=== PATIENT | female | born 1935 | race Caucasian/White ===

== ENCOUNTER 2018-01-24 18:05 | Inpatient (IN) | payer MEDICARE, MEDICAID ==
[~2018-01-24] VITALS: Ht 172.7 cm; Wt 84.5 kg
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
[2018-01-24 19:19] LABS: BASO # 0.1 x10^3/uL (0.0-0.2); BASO % 1 % (0-3); EOS # 0.4 x10^3/uL (0.0-0.7); EOS % 5 % (0-3); HEMATOCRIT 45.8 % (36.0-47.0); HEMOGLOBIN 15.1 g/dL (12.0-15.5); LYMPH # 1.4 x10^3/uL (1.0-4.8); LYMPH % 17 % (24-48); MEAN CORPUSCULAR HEMOGLOBIN 27 pg (25-35); MEAN CORPUSCULAR HGB CONC 33 g/dL (31-37); MEAN CORPUSCULAR VOLUME 82 fL (79-100); MONO # 0.7 x10^3/uL (0.0-1.1); MONO % 8 % (0-9); NEUT # 5.7 x10^3uL (1.8-7.7); NEUT % 69 % (31-73); PLATELET COUNT 277 x10^3/uL (140-400); RED BLOOD COUNT 5.61 x10^6/uL (3.50-5.40); RED CELL DISTRIBUTION WIDTH 14.9 % (11.5-14.5); WHITE BLOOD COUNT 8.3 x10^3/uL (4.0-11.0)
[2018-01-24 19:23] LABS: AMPHETAMINE/METHAMPHETAMINE NEG (NEG); BARBITURATES NEG (NEG); BENZODIAZEPINES NEG (NEG); CANNABINOIDS NEG (NEG); COCAINE NEG (NEG); METHADONE NEG (NEG); OPIATES NEG (NEG); PHENCYCLIDINE NEG (NEG)
--- NOTE | 2018-01-24 19:25 | RAD ---
EXAM: Chest, single view. HISTORY: Altered mental status. COMPARISON: None. FINDINGS: A frontal view of the chest is obtained. There is mild pulmonary congestion. There is elevation of the right hemidiaphragm. The heart is normal in size. No pleural effusion or pneumothorax is seen. There is a cardiac pacemaker with leads in expected position. IMPRESSION: 1. Suspected mild pulmonary congestion. 2. Mild elevation of the right hemidiaphragm. Electronically signed by: Jessika Hayes MD (01/24/2018 7:22 PM) [facility]
--- NOTE | 2018-01-24 19:27 | RAD ---
EXAM: Head CT without contrast. HISTORY: Altered mental status. TECHNIQUE: Computed tomographic images of the head were obtained without contrast. *One or more of the following individualized dose reduction techniques were utilized for this examination: 1. Automated exposure control. 2. Adjustment of the mA and/or kV according to patient size. 3. Use of iterative reconstruction technique. COMPARISON: None. FINDINGS: There is no acute or subacute extra-axial or intraparenchymal hemorrhage. There is no mass effect or midline shift. There is no hydrocephalus. There are extensive areas of decreased attenuation within the cerebral white matter, nonspecific and likely related to chronic small vessel disease. There is cerebral atrophy. The visualized portions of the orbits, paranasal sinuses and mastoid air cells are unremarkable. No suspicious calvarial lesion is seen. IMPRESSION: 1. Extensive areas of hypodensity within the cerebral white matter, likely due to chronic small vessel disease. 2. Cerebral atrophy. 3. Note is made that MRI is more sensitive for acute infarction. Electronically signed by: Jessika Hayes MD (01/24/2018 7:24 PM) [facility]
[2018-01-24 19:30] LABS: COLOR,URINE YELLOW
[2018-01-24 19:31] LABS: CALCIUM 8.7 mg/dL (8.5-10.1); CREATININE 0.5 mg/dL (0.6-1.0); GFR 118.7; MAGNESIUM 1.9 mg/dL (1.8-2.4); POTASSIUM 3.7 mmol/L (3.5-5.1)
[2018-01-24 19:31] LABS: BILIRUBIN,URINE NEG (NEG); CLARITY,URINE CLOUDY; GLUCOSE,URINE NEG (NEG); NITRITE,URINE POS (NEG); UROBILINOGEN,URINE 0.2 mg/dL (0.2 mg/dL)
[2018-01-24 19:32] LABS: BACTERIA,URINE MOD /HPF (0-FEW); RBC,URINE OCC /HPF (0-2); SQUAMOUS EPITHELIAL CELL,UR FEW /LPF; WBC,URINE >40 /HPF (0-4)
[2018-01-24] MEDS ORDERED: cefTRIAXone IM 1 GM VIAL IM ONE (20:00)
[2018-01-24] MEDS ORDERED: ASPI-630 PO (20:05)
[2018-01-24] MEDS ORDERED: MELA3TAB2 PO (20:05)
[2018-01-24] MEDS ORDERED: LIPA1CAP4 PO (20:05)
[2018-01-24] MEDS ORDERED: HYDR-2758 PO (20:05)
[2018-01-24] MEDS ORDERED: GABA-586 PO (20:05)
[2018-01-24] MEDS ORDERED: ACET650S11 RC (20:05)
[2018-01-24] MEDS ORDERED: ESCITALOPRAM OX20 MG PO (20:05)
[2018-01-24] MEDS ORDERED: DOCU100C28 PO (20:05)
[2018-01-24] MEDS ORDERED: ACET325T9 PO (20:05)
[2018-01-24] MEDS ORDERED: [UNRECOGNIZED DRUG - CODE] AU (20:05)
[2018-01-24] MEDS ORDERED: NYST60PO TP (20:05)
[2018-01-24] MEDS ORDERED: OMEP20TA8 PO (20:05)
[2018-01-24] MEDS ORDERED: ATRO2DRO3 SL (20:05)
[2018-01-24] MEDS ORDERED: PROM25TA10 PO (20:05)
[2018-01-24] MEDS ORDERED: OLAN5TAB9 PO ×2 (20:05)
[2018-01-24] MEDS ORDERED: BISA10SU55 RC (20:05)
[2018-01-24] MEDS ORDERED: MORP20SY SL (20:05)
[2018-01-24 20:28] LABS: SEDIMENTATION RATE 8 (0-25)
[2018-01-24 21:37] VITALS: BP 142/61
[2018-01-24] MEDS ORDERED: ACETAMINOPHEN 325 MG TABLET PO PRN (22:00)
[2018-01-24] MEDS ORDERED: HYDROcodone/APAP 5/325MG 1 TAB TABLET PO PRN (22:00)
[2018-01-24] MEDS ORDERED: MAG HYDROX/AL HYDROX/SIMETH 30 ML ORAL.SUSP PO PRN (22:00)
[2018-01-24] MEDS ORDERED: PROMETHAZINE 25 MG TABLET. PO PRN (22:00)
[2018-01-24] MEDS ORDERED: NYSTATIN TOPICAL POWDER 15GM BOTTLE. TP PRN (22:00)
[2018-01-24] MEDS ORDERED: BISACODYL 10 MG SUPP.RECT RC PRN (22:00)
[2018-01-24] MEDS ORDERED: MAGNESIUM HYDROXIDE 2,400 MG/30 ML ORAL.SUSP. PO PRN (22:00)
[2018-01-24] MEDS: MELATONIN 3 MG TABLET PO SCH (22:19)
[2018-01-24] MEDS: OLANZapine 5 MG TABLET PO SCH (22:19)
[2018-01-24] MEDS ORDERED: CARBAMIDE PEROXIDE 6.5% OTIC SOLUTION 15ML BOTTLE. AU PRN (22:45)
--- NOTE | 2018-01-25 00:22 | EKG ---
[address] [address] Test Date: 2018-01-24 Test Time: 18:48:17 Pat Name: CANDELARIA MAGAÑA Department: Room: [address] [place] [address] Gender: F Civil Rights Attorney: : 1935 Requested By: JANETH JIMENEZ Order Number: [id number] Reading MD: Measurements Intervals Savage Rate: 61 P: MI: QRS: -22 QRSD: 100 T: 7 QT: 438 QTc: 442 Interpretive Statements IRREGULAR RHYTHM, NO P-WAVE FOUND LEFTWARD AXIS R-S TRANSITION ZONE IN V LEADS DISPLACED TO THE LEFT QRS(T) CONTOUR ABNORMALITY CONSIDER ANTEROSEPTAL MYOCARDIAL DAMAGE POSSIBLY ABNORMAL ECG RI6.01 No previous ECG available for comparison
[2018-01-25 05:40] VITALS: BP 117/59
[2018-01-25] MEDS: PANTOPRAZOLE 40 MG TABLET. PO SCH (08:57)
[2018-01-25] MEDS: OLANZapine 7.5 MG TABLET PO SCH (08:57)
[2018-01-25] MEDS: LIPASE/PROTEAS/AMYLAS 10/34/55 CAPSULE.DR. PO SCH ×4 (08:57→20:03)
[2018-01-25] MEDS: DOCUSATE SODIUM 100 MG CAPSULE PO SCH ×2 (08:57→20:02)
[2018-01-25] MEDS: GABAPENTIN 300 MG CAPSULE. PO SCH ×2 (08:57→20:02)
[2018-01-25] MEDS: ASPIRIN 81 MG TAB.CHEW PO SCH (08:58)
[2018-01-25] MEDS ORDERED: CITALOPRAM 20 MG TABLET. PO SCH (09:00)
[2018-01-25 09:54] LABS: BASO # 0.1 x10^3/uL (0.0-0.2); BASO % 1 % (0-3); EOS # 0.3 x10^3/uL (0.0-0.7); EOS % 3 % (0-3); HEMATOCRIT 44.6 % (36.0-47.0); HEMOGLOBIN 14.6 g/dL (12.0-15.5); LYMPH # 1.1 x10^3/uL (1.0-4.8); LYMPH % 13 % (24-48); MEAN CORPUSCULAR HEMOGLOBIN 27 pg (25-35); MEAN CORPUSCULAR HGB CONC 33 g/dL (31-37); MEAN CORPUSCULAR VOLUME 82 fL (79-100); MONO # 0.6 x10^3/uL (0.0-1.1); MONO % 7 % (0-9); NEUT # 6.5 x10^3uL (1.8-7.7); NEUT % 75 % (31-73); PLATELET COUNT 276 x10^3/uL (140-400); RED BLOOD COUNT 5.45 x10^6/uL (3.50-5.40); RED CELL DISTRIBUTION WIDTH 14.6 % (11.5-14.5); WHITE BLOOD COUNT 8.6 x10^3/uL (4.0-11.0)
[2018-01-25 10:08] LABS: CALCIUM 8.9 mg/dL (8.5-10.1); CREATININE 0.5 mg/dL (0.6-1.0); GFR 118.7; POTASSIUM 3.6 mmol/L (3.5-5.1)
[2018-01-25 11:46] LABS: THYROID STIM HORMONE (TSH) 0.629 uIU/mL (0.358-3.740)
[2018-01-25] MEDS ORDERED: LIPASE/PROTEAS/AMYLAS 10/34/55 CAPSULE.DR. PO ONE (12:30)
[2018-01-25 16:23] VITALS: BP 115/52
[2018-01-25] MEDS: MELATONIN 3 MG TABLET PO SCH (20:02)
[2018-01-25] MEDS: OLANZapine 5 MG TABLET PO SCH (20:02)
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
[2018-01-25 23:08] LABS: HEMOGLOBIN A1C 6.6 % (4.8-5.6)
[2018-01-26 00:09] LABS: THYROXINE 8.2 ug/dL (4.5-12.0)
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
[2018-01-26 06:13] VITALS: BP 149/70
[2018-01-26] MEDS: PANTOPRAZOLE 40 MG TABLET. PO SCH (07:39)
[2018-01-26] MEDS: ASPIRIN 81 MG TAB.CHEW PO SCH (11:08)
[2018-01-26] MEDS: LIPASE/PROTEAS/AMYLAS 10/34/55 CAPSULE.DR. PO SCH ×4 (11:08→19:34)
[2018-01-26] MEDS: GABAPENTIN 300 MG CAPSULE. PO SCH ×2 (11:08→19:33)
[2018-01-26] MEDS: OLANZapine 7.5 MG TABLET PO SCH (11:08)
[2018-01-26] MEDS: DOCUSATE SODIUM 100 MG CAPSULE PO SCH ×2 (11:08→19:33)
[2018-01-26] MEDS: SERTRALINE 50 MG TABLET. PO SCH (11:09)
[2018-01-26 16:39] VITALS: BP 123/51
[2018-01-26] MEDS: MELATONIN 3 MG TABLET PO SCH (19:33)
[2018-01-26] MEDS: OLANZapine 5 MG TABLET PO SCH (19:34)
--- NOTE | 2018-01-26 22:49 | PDOC ---
Exam Note: Cheikh Note: Late entry for date of service January 25, 2018. Please also refer to the separate dictated note~for this date of service dictated separately.~Patient seen individually. Discussed the patient with Nursing staff reviewed the chart.~ Reviewed interim history and current functioning. Reviewed vital signs,~Labs/ Radiology~and current medications noted below. Continue current treatment with the changes noted in the dictated addendum note Assessment: Vital Signs: VS - Last 72 Hours, by Label Date Time Temp Pulse Resp B/P (MAP) Pulse Ox O2 Delivery O2 Flow Rate FiO2 01/26/18 16:39 98.6 66 16 123/51 (75) 91 01/26/18 06:13 97.4 63 14 149/70 (96) 97 01/25/18 16:23 97.9 66 16 115/52 (73) 93 01/25/18 05:40 97.6 59 18 117/59 (78) 97 01/24/18 21:37 97.4 60 20 142/61 (88) 98 01/24/18 20:48 60 16 102/66 (78) 99 Room Air 01/24/18 18:18 98.0 63 16 99 Room Air Vital Signs Date Time Temp Pulse Resp B/P (MAP) Pulse Ox O2 Delivery O2 Flow Rate FiO2 01/26/18 16:39 98.6 66 16 123/51 (75) 91 01/24/18 20:48 Room Air I&O Intake and Output 01/26/18 07:00 Intake Total 660 ml Balance 660 ml Intake Oral 660 ml # Bowel Movements 1 Current Medications: Meds: Current Medications Ceftriaxone Sodium (Rocephin Im) 1 gm 1X ONCE IM Last administered on at 20:16; Start 01/24/18 at 20:00; Stop 01/24/18 at 20:01; Status DC Citalopram Hydrobromide (CeleXA) 40 mg DAILY PO Last administered on 01/25/18at 08:58; Start 01/25/18 at 09:00; Stop 01/25/18 at 20:08; Status DC Melatonin 3 mg HS PO Last administered on 01/26/18at 19:33; Start 01/24/18 at 22 :00 Olanzapine (ZyPREXA) 5 mg HS PO Last administered on 01/26/18at 19:34; Start at 22:00 Olanzapine (ZyPREXA) 7.5 mg DAILY PO Last administered on 01/26/18at 11:08; Start 01/25/18 at 09:00 Al Hydroxide/Mg Hydroxide (Mylanta Plus Xs) 15 ml PRN AFTMEALHC PRN PO DYSPEPSIA; Start 01/24/18 at 22:00 Magnesium Hydroxide (Milk Of Magnesia) 2,400 mg PRN QHS PRN PO CONSTIPATION; Start 01/24/18 at 22:00 Acetaminophen (Tylenol) 650 mg PRN Q6HRS PRN PO PAIN / TEMP; Start 01/24/18 at 22:00 Gabapentin (Neurontin) 300 mg BID PO Last administered on 01/26/18at 19:33; Start 01/25/18 at 09:00 Nystatin (Nystop) 1 harpal PRN BID PRN TP RASH; Start 01/24/18 at 22:00 Promethazine HCl (Phenergan) 25 mg PRN Q4HRS PRN PO NAUSEA/VOMITING; Start at 22:00 Aspirin (Children'S Aspirin) 81 mg DAILY PO Last administered on 01/26/18at 11: 08; Start 01/25/18 at 09:00 Bisacodyl (Dulcolax Supp) 10 mg PRN DAILY PRN RC CONSTIPATION; Start 01/24/18 at 22:00 Carbamide Peroxide (Debrox) 4 drop PRN DAILY PRN AU CERUMEN IMPACTION; Start at 22:45 Docusate Sodium (Colace) 100 mg BID PO Last administered on 01/26/18at 19:33; Start 01/25/18 at 09:00 Acetaminophen/ Hydrocodone Bitart (Lortab 5/325) 1 tab PRN Q6HRS PRN PO PAIN; Start 01/24/18 at 22:00 Amylase/Lipase/ Protease (Zenpep 10,000) 1 cap QIDAFTMEAL PO Last administered on 01/25/18at 08:57; Start 01/25/18 at 08:00; Stop 01/25/18 at 12:17; Status DC Pantoprazole Sodium (Protonix) 20 mg DAILYAC PO Last administered on 01/26/18at 07:39; Start 01/25/18 at 07:30 Amylase/Lipase/ Protease (Zenpep 10,000) 1 cap TIDWMEALHC PO Last administered on 01/26/18at 19:34; Start 01/25/18 at 17:00 Amylase/Lipase/ Protease (Zenpep 10,000) 1 cap ONCE ONCE PO Last administered on 01/25/18at 12:43; Start 01/25/18 at 12:30; Stop 01/25/18 at 12:31; Status DC Sertraline HCl (Zoloft) 50 mg DAILY PO Last administered on 01/26/18at 11:09; Start 01/26/18 at 09:00 Divalproex Sodium (Depakote Sprinkles) 125 mg BID94 PO ; Start 01/27/18 at 09:00 Active Scripts Active Reported Nystop (Nystatin) 60 Gm Powder 1 Harpal TP PRN BID PRN Carbamide (Carbamide Peroxide) 15 Ml Drops 4 Drop OT PRN DAILY PRN Dulcolax (Bisacodyl) 10 Mg Supp.rect 10 Mg RC PRN DAILY PRN Promethazine Hcl 25 Mg Tablet 25 Mg PO PRN Q4HRS PRN Hydrocodone-Apap 5-325 (Hydrocodone Bit/Acetaminophen) 1 Each Tablet 1 Tab PO PRN Q6HRS PRN Morphine Sulfate 20 Mg/1 Ml Syringe 0.25-1 Ml SL PRN Q1HR PRN Atropine Sulfate 2 Ml Drops 2 Drop SL PRN Q2HR PRN Tylenol (Acetaminophen) 325 Mg Tablet 650 Mg PO PRN Q6HRS PRN Acetaminophen Supp (Acetaminophen) 650 Mg Supp.rect 650 Mg RC PRN Q4HRS PRN Creon 12,000 Units Capsule (Lipase/Protease/Amylase) 1 Each Capsule. 1 Cap PO QID Omeprazole 20 Mg Tablet.dr 20 Mg PO DAILY Docusate Sodium 100 Mg Capsule 100 Mg PO BID Gabapentin 300 Mg Capsule 300 Mg PO BID Escitalopram Oxalate 20 Mg Tablet 20 Mg PO DAILY Aspirin 81 Mg Tab.chew 81 Mg PO DAILY Melatonin 3 Mg Tablet 3 Mg PO HS Olanzapine 5 Mg Tablet 5 Mg PO HS Olanzapine 5 Mg Tablet 7.5 Mg PO DAILY I have reviewed the current psychotropics carefully including drug interactions. Risk benefit ratio favors no change other than as noted in my dictated progress note. Diagnosis: Problems: (1) Mental status change (2) Anxiety disorder (3) Dementia in Alzheimer's disease with delusions (4) Dementia in Alzheimer's disease with depression (5) Dementia, vascular, with delusions (6) Dementia, vascular, with depression (7) Impulse control disorder JANETH JIMENEZ MD January 26, 2018 22:49
--- NOTE | 2018-01-26 23:19 | PDOC ---
Exam Note: Cheikh Note: Please also refer to the separate dictated note~for this date of service dictated separately.~Patient seen individually. Discussed the patient with Nursing staff reviewed the chart.~Reviewed interim history and current functioning. Reviewed vital signs,~Labs/ Radiology~and current medications noted below. Continue current treatment with the changes noted in the dictated addendum note Assessment: Vital Signs: Vital Signs Date Time Temp Pulse Resp B/P (MAP) Pulse Ox O2 Delivery O2 Flow Rate FiO2 01/26/18 16:39 98.6 66 16 123/51 (75) 91 01/24/18 20:48 Room Air I&O Intake and Output 01/26/18 07:00 Intake Total 660 ml Balance 660 ml Intake Oral 660 ml # Bowel Movements 1 Current Medications: Meds: Current Medications Ceftriaxone Sodium (Rocephin Im) 1 gm 1X ONCE IM Last administered on at 20:16; Start 01/24/18 at 20:00; Stop 01/24/18 at 20:01; Status DC Citalopram Hydrobromide (CeleXA) 40 mg DAILY PO Last administered on 01/25/18at 08:58; Start 01/25/18 at 09:00; Stop 01/25/18 at 20:08; Status DC Melatonin 3 mg HS PO Last administered on 01/26/18at 19:33; Start 01/24/18 at 22 :00 Olanzapine (ZyPREXA) 5 mg HS PO Last administered on 01/26/18at 19:34; Start at 22:00 Olanzapine (ZyPREXA) 7.5 mg DAILY PO Last administered on 01/26/18at 11:08; Start 01/25/18 at 09:00 Al Hydroxide/Mg Hydroxide (Mylanta Plus Xs) 15 ml PRN AFTMEALHC PRN PO DYSPEPSIA; Start 01/24/18 at 22:00 Magnesium Hydroxide (Milk Of Magnesia) 2,400 mg PRN QHS PRN PO CONSTIPATION; Start 01/24/18 at 22:00 Acetaminophen (Tylenol) 650 mg PRN Q6HRS PRN PO PAIN / TEMP; Start 01/24/18 at 22:00 Gabapentin (Neurontin) 300 mg BID PO Last administered on 01/26/18at 19:33; Start 01/25/18 at 09:00 Nystatin (Nystop) 1 harpal PRN BID PRN TP RASH; Start 01/24/18 at 22:00 Promethazine HCl (Phenergan) 25 mg PRN Q4HRS PRN PO NAUSEA/VOMITING; Start at 22:00 Aspirin (Children'S Aspirin) 81 mg DAILY PO Last administered on 01/26/18at 11: 08; Start 01/25/18 at 09:00 Bisacodyl (Dulcolax Supp) 10 mg PRN DAILY PRN RC CONSTIPATION; Start 01/24/18 at 22:00 Carbamide Peroxide (Debrox) 4 drop PRN DAILY PRN AU CERUMEN IMPACTION; Start at 22:45 Docusate Sodium (Colace) 100 mg BID PO Last administered on 01/26/18at 19:33; Start 01/25/18 at 09:00 Acetaminophen/ Hydrocodone Bitart (Lortab 5/325) 1 tab PRN Q6HRS PRN PO PAIN; Start 01/24/18 at 22:00 Amylase/Lipase/ Protease (Zenpep 10,000) 1 cap QIDAFTMEAL PO Last administered on 01/25/18at 08:57; Start 01/25/18 at 08:00; Stop 01/25/18 at 12:17; Status DC Pantoprazole Sodium (Protonix) 20 mg DAILYAC PO Last administered on 01/26/18at 07:39; Start 01/25/18 at 07:30 Amylase/Lipase/ Protease (Zenpep 10,000) 1 cap TIDWMEALHC PO Last administered on 01/26/18at 19:34; Start 01/25/18 at 17:00 Amylase/Lipase/ Protease (Zenpep 10,000) 1 cap ONCE ONCE PO Last administered on 01/25/18at 12:43; Start 01/25/18 at 12:30; Stop 01/25/18 at 12:31; Status DC Sertraline HCl (Zoloft) 50 mg DAILY PO Last administered on 01/26/18at 11:09; Start 01/26/18 at 09:00 Divalproex Sodium (Depakote Sprinkles) 125 mg BID94 PO ; Start 01/27/18 at 09:00 Active Scripts Active Reported Nystop (Nystatin) 60 Gm Powder 1 Harpal TP PRN BID PRN Carbamide (Carbamide Peroxide) 15 Ml Drops 4 Drop OT PRN DAILY PRN Dulcolax (Bisacodyl) 10 Mg Supp.rect 10 Mg RC PRN DAILY PRN Promethazine Hcl 25 Mg Tablet 25 Mg PO PRN Q4HRS PRN Hydrocodone-Apap 5-325 (Hydrocodone Bit/Acetaminophen) 1 Each Tablet 1 Tab PO PRN Q6HRS PRN Morphine Sulfate 20 Mg/1 Ml Syringe 0.25-1 Ml SL PRN Q1HR PRN Atropine Sulfate 2 Ml Drops 2 Drop SL PRN Q2HR PRN Tylenol (Acetaminophen) 325 Mg Tablet 650 Mg PO PRN Q6HRS PRN Acetaminophen Supp (Acetaminophen) 650 Mg Supp.rect 650 Mg RC PRN Q4HRS PRN Creon 12,000 Units Capsule (Lipase/Protease/Amylase) 1 Each Capsule. 1 Cap PO QID Omeprazole 20 Mg Tablet.dr 20 Mg PO DAILY Docusate Sodium 100 Mg Capsule 100 Mg PO BID Gabapentin 300 Mg Capsule 300 Mg PO BID Escitalopram Oxalate 20 Mg Tablet 20 Mg PO DAILY Aspirin 81 Mg Tab.chew 81 Mg PO DAILY Melatonin 3 Mg Tablet 3 Mg PO HS Olanzapine 5 Mg Tablet 5 Mg PO HS Olanzapine 5 Mg Tablet 7.5 Mg PO DAILY I have reviewed the current psychotropics carefully including drug interactions. Risk benefit ratio favors no change other than as noted in my dictated progress note. Diagnosis: Problems: (1) Mental status change (2) Anxiety disorder (3) Dementia in Alzheimer's disease with delusions (4) Dementia in Alzheimer's disease with depression (5) Dementia, vascular, with delusions (6) Dementia, vascular, with depression (7) Impulse control disorder JANETH JIMENEZ MD January 26, 2018 23:19
[2018-01-27 06:06] VITALS: BP 124/50
[2018-01-27] MEDS: DOCUSATE SODIUM 100 MG CAPSULE PO SCH ×2 (08:41→21:02)
[2018-01-27] MEDS: GABAPENTIN 300 MG CAPSULE. PO SCH ×2 (08:41→21:02)
[2018-01-27] MEDS: OLANZapine 7.5 MG TABLET PO SCH (08:42)
[2018-01-27] MEDS: LIPASE/PROTEAS/AMYLAS 10/34/55 CAPSULE.DR. PO SCH ×4 (08:42→21:04)
[2018-01-27] MEDS: ASPIRIN 81 MG TAB.CHEW PO SCH (08:42)
[2018-01-27] MEDS: SERTRALINE 50 MG TABLET. PO SCH (08:42)
[2018-01-27] MEDS: PANTOPRAZOLE 40 MG TABLET. PO SCH (08:42)
[2018-01-27] MEDS: DIVALPROEX 125 MG CAP.SPRINK PO SCH ×2 (08:43→18:04)
[2018-01-27] MEDS ORDERED: DIVALPROEX 125 MG CAP.SPRINK PO SCH (09:00)
[2018-01-27 15:41] VITALS: BP 120/50
--- NOTE | 2018-01-27 20:50 | PDOC ---
Exam Note: Cheikh Note: Please also refer to the separate dictated note~for this date of service dictated separately.~Patient seen individually. Discussed the patient with Nursing staff reviewed the chart.~Reviewed interim history and current functioning. Reviewed vital signs,~Labs/ Radiology~and current medications noted below. Continue current treatment with the changes noted in the dictated addendum note Assessment: Vital Signs: Vital Signs Date Time Temp Pulse Resp B/P (MAP) Pulse Ox O2 Delivery O2 Flow Rate FiO2 01/27/18 15:58 97 Room Air 01/27/18 15:41 97.2 60 18 120/50 (73) I&O Intake and Output 01/27/18 07:00 Intake Total 960 ml Balance 960 ml Intake Oral 960 ml Current Medications: Meds: Current Medications Ceftriaxone Sodium (Rocephin Im) 1 gm 1X ONCE IM Last administered on at 20:16; Start 01/24/18 at 20:00; Stop 01/24/18 at 20:01; Status DC Citalopram Hydrobromide (CeleXA) 40 mg DAILY PO Last administered on 01/25/18at 08:58; Start 01/25/18 at 09:00; Stop 01/25/18 at 20:08; Status DC Melatonin 3 mg HS PO Last administered on 01/26/18at 19:33; Start 01/24/18 at 22 :00 Olanzapine (ZyPREXA) 5 mg HS PO Last administered on 01/26/18at 19:34; Start at 22:00 Olanzapine (ZyPREXA) 7.5 mg DAILY PO Last administered on 01/27/18at 08:42; Start 01/25/18 at 09:00 Al Hydroxide/Mg Hydroxide (Mylanta Plus Xs) 15 ml PRN AFTMEALHC PRN PO DYSPEPSIA; Start 01/24/18 at 22:00 Magnesium Hydroxide (Milk Of Magnesia) 2,400 mg PRN QHS PRN PO CONSTIPATION; Start 01/24/18 at 22:00 Acetaminophen (Tylenol) 650 mg PRN Q6HRS PRN PO PAIN / TEMP; Start 01/24/18 at 22:00 Gabapentin (Neurontin) 300 mg BID PO Last administered on 01/27/18at 08:41; Start 01/25/18 at 09:00 Nystatin (Nystop) 1 harpal PRN BID PRN TP RASH; Start 01/24/18 at 22:00 Promethazine HCl (Phenergan) 25 mg PRN Q4HRS PRN PO NAUSEA/VOMITING; Start at 22:00 Aspirin (Children'S Aspirin) 81 mg DAILY PO Last administered on 01/27/18at 08: 42; Start 01/25/18 at 09:00 Bisacodyl (Dulcolax Supp) 10 mg PRN DAILY PRN RC CONSTIPATION; Start 01/24/18 at 22:00 Carbamide Peroxide (Debrox) 4 drop PRN DAILY PRN AU CERUMEN IMPACTION; Start at 22:45 Docusate Sodium (Colace) 100 mg BID PO Last administered on 01/27/18at 08:41; Start 01/25/18 at 09:00 Acetaminophen/ Hydrocodone Bitart (Lortab 5/325) 1 tab PRN Q6HRS PRN PO PAIN Last administered on 01/27/18at 14:23; Start 01/24/18 at 22:00 Amylase/Lipase/ Protease (Zenpep 10,000) 1 cap QIDAFTMEAL PO Last administered on 01/25/18at 08:57; Start 01/25/18 at 08:00; Stop 01/25/18 at 12:17; Status DC Pantoprazole Sodium (Protonix) 20 mg DAILYAC PO Last administered on 01/27/18at 08:42; Start 01/25/18 at 07:30 Amylase/Lipase/ Protease (Zenpep 10,000) 1 cap TIDWMEALHC PO Last administered on 01/27/18at 18:04; Start 01/25/18 at 17:00 Amylase/Lipase/ Protease (Zenpep 10,000) 1 cap ONCE ONCE PO Last administered on 01/25/18at 12:43; Start 01/25/18 at 12:30; Stop 01/25/18 at 12:31; Status DC Sertraline HCl (Zoloft) 50 mg DAILY PO Last administered on 01/27/18at 08:42; Start 01/26/18 at 09:00 Divalproex Sodium (Depakote Sprinkles) 125 mg BID94 PO ; Start 01/27/18 at 09:00 ; Stop 01/27/18 at 09:00; Status DC Divalproex Sodium (Depakote Sprinkles) 125 mg BID@0900,1700 PO Last administered on 01/27/18at 18:04; Start 01/27/18 at 09:00 Cefpodoxime Proxetil (Vantin) 200 mg BID PO ; Start 01/27/18 at 21:00; Stop at 20:59 Lactobacillus Rhamnosus (Culturelle) 1 cap BID PO ; Start 01/27/18 at 21:00 Active Scripts Active Reported Nystop (Nystatin) 60 Gm Powder 1 Harpal TP PRN BID PRN Carbamide (Carbamide Peroxide) 15 Ml Drops 4 Drop OT PRN DAILY PRN Dulcolax (Bisacodyl) 10 Mg Supp.rect 10 Mg RC PRN DAILY PRN Promethazine Hcl 25 Mg Tablet 25 Mg PO PRN Q4HRS PRN Hydrocodone-Apap 5-325 (Hydrocodone Bit/Acetaminophen) 1 Each Tablet 1 Tab PO PRN Q6HRS PRN Morphine Sulfate 20 Mg/1 Ml Syringe 0.25-1 Ml SL PRN Q1HR PRN Atropine Sulfate 2 Ml Drops 2 Drop SL PRN Q2HR PRN Tylenol (Acetaminophen) 325 Mg Tablet 650 Mg PO PRN Q6HRS PRN Acetaminophen Supp (Acetaminophen) 650 Mg Supp.rect 650 Mg RC PRN Q4HRS PRN Creon 12,000 Units Capsule (Lipase/Protease/Amylase) 1 Each Capsule. 1 Cap PO QID Omeprazole 20 Mg Tablet. 20 Mg PO DAILY Docusate Sodium 100 Mg Capsule 100 Mg PO BID Gabapentin 300 Mg Capsule 300 Mg PO BID Escitalopram Oxalate 20 Mg Tablet 20 Mg PO DAILY Aspirin 81 Mg Tab.chew 81 Mg PO DAILY Melatonin 3 Mg Tablet 3 Mg PO HS Olanzapine 5 Mg Tablet 5 Mg PO HS Olanzapine 5 Mg Tablet 7.5 Mg PO DAILY I have reviewed the current psychotropics carefully including drug interactions. Risk benefit ratio favors no change other than as noted in my dictated progress note. Diagnosis: Problems: (1) Mental status change (2) Anxiety disorder (3) Dementia in Alzheimer's disease with delusions (4) Dementia in Alzheimer's disease with depression (5) Dementia, vascular, with delusions (6) Dementia, vascular, with depression (7) Impulse control disorder JANETH JIMENEZ MD January 27, 2018:50
[2018-01-27] MEDS: MELATONIN 3 MG TABLET PO SCH (21:02)
[2018-01-27] MEDS: OLANZapine 5 MG TABLET PO SCH (21:02)
[2018-01-27] MEDS: CEFPODOXIME PROXETIL 100 MG TABLET PO SCH (21:04)
[2018-01-27] MEDS: LACTOBACILLUS RHAMNOSUS GG 1 CAPSULE. PO SCH (21:04)
[2018-01-28 06:13] VITALS: BP 118/58
[2018-01-28] MEDS: LACTOBACILLUS RHAMNOSUS GG 1 CAPSULE. PO SCH ×2 (07:52→19:35)
[2018-01-28] MEDS: GABAPENTIN 300 MG CAPSULE. PO SCH ×2 (07:52→19:35)
[2018-01-28] MEDS: DOCUSATE SODIUM 100 MG CAPSULE PO SCH ×2 (07:52→19:35)
[2018-01-28] MEDS: SERTRALINE 50 MG TABLET. PO SCH (07:52)
[2018-01-28] MEDS: OLANZapine 7.5 MG TABLET PO SCH (07:52)
[2018-01-28] MEDS: DIVALPROEX 125 MG CAP.SPRINK PO SCH ×2 (07:52→17:00)
[2018-01-28] MEDS: ASPIRIN 81 MG TAB.CHEW PO SCH (07:52)
[2018-01-28] MEDS: LIPASE/PROTEAS/AMYLAS 10/34/55 CAPSULE.DR. PO SCH ×4 (07:53→19:43)
[2018-01-28] MEDS: CEFPODOXIME PROXETIL 100 MG TABLET PO SCH ×2 (07:53→19:35)
[2018-01-28] MEDS: PANTOPRAZOLE 40 MG TABLET. PO SCH (07:53)
--- NOTE | 2018-01-28 14:16 | PN ---
DATE: 01/26/2018 This late entry 01/26/2018 covers elements not covered in my initial note 01/26/2018. I met with the patient in the evening, the patient slept 7-1/2 hours. She remains confused, compliant with medication, frequently wanting out of the wheelchair, stuck her finger out at nursing staff, somewhat agitated. REVIEW OF SYSTEMS: Ambulation impaired, in wheelchair. No CV, , pulmonary, eye, ENT system symptoms on review. Reliability poor. MENTAL STATUS EXAM: Oriented to herself. Insight, judgment, recent and remote memory, attention, concentration, fund of knowledge poor, consistent with her diagnosis mentioned in my initial note. IMPRESSION: Major neurocognitive disorder, Alzheimer, vascular with depression, delusion, behavioral disturbance; anxiety disorder, unspecified; impulse control disorder, unspecified. PLAN: Start Depakote Sprinkle 125 mg 9 a.m., 5:00 p.m. Check CBC, CMP, valproic acid level in 3 days. Continue Rest, unchanged for now. MAN Pavithra JIMENEZ MD DR: SVITLANA/brittney JOB#: [id number] / [id number]
[2018-01-28 16:20] VITALS: BP 123/60
[2018-01-28] MEDS: OLANZapine 5 MG TABLET PO SCH (19:35)
[2018-01-28] MEDS: MELATONIN 3 MG TABLET PO SCH (19:39)
--- NOTE | 2018-01-28 20:48 | PDOC ---
Exam Note: Cheikh Note: Please also refer to the separate dictated note~for this date of service dictated separately.~Patient seen individually. Discussed the patient with Nursing staff reviewed the chart.~Reviewed interim history and current functioning. Reviewed vital signs,~Labs/ Radiology~and current medications noted below. Continue current treatment with the changes noted in the dictated addendum note Assessment: Vital Signs: Vital Signs Date Time Temp Pulse Resp B/P (MAP) Pulse Ox O2 Delivery O2 Flow Rate FiO2 01/28/18 16:20 97.8 67 18 123/60 (81) 96 01/27/18 15:58 Room Air I&O Intake and Output 01/28/18 07:00 Intake Total 600 ml Balance 600 ml Intake Oral 600 ml Current Medications: Meds: Current Medications Ceftriaxone Sodium (Rocephin Im) 1 gm 1X ONCE IM Last administered on at 20:16; Start 01/24/18 at 20:00; Stop 01/24/18 at 20:01; Status DC Citalopram Hydrobromide (CeleXA) 40 mg DAILY PO Last administered on 01/25/18at 08:58; Start 01/25/18 at 09:00; Stop 01/25/18 at 20:08; Status DC Melatonin 3 mg HS PO Last administered on 01/28/18at 19:39; Start 01/24/18 at 22 :00 Olanzapine (ZyPREXA) 5 mg HS PO Last administered on 01/28/18at 19:35; Start at 22:00 Olanzapine (ZyPREXA) 7.5 mg DAILY PO Last administered on 01/28/18at 07:52; Start 01/25/18 at 09:00 Al Hydroxide/Mg Hydroxide (Mylanta Plus Xs) 15 ml PRN AFTMEALHC PRN PO DYSPEPSIA; Start 01/24/18 at 22:00 Magnesium Hydroxide (Milk Of Magnesia) 2,400 mg PRN QHS PRN PO CONSTIPATION; Start 01/24/18 at 22:00 Acetaminophen (Tylenol) 650 mg PRN Q6HRS PRN PO PAIN / TEMP; Start 01/24/18 at 22:00 Gabapentin (Neurontin) 300 mg BID PO Last administered on 01/28/18at 19:35; Start 01/25/18 at 09:00 Nystatin (Nystop) 1 harpal PRN BID PRN TP RASH; Start 01/24/18 at 22:00 Promethazine HCl (Phenergan) 25 mg PRN Q4HRS PRN PO NAUSEA/VOMITING; Start at 22:00 Aspirin (Children'S Aspirin) 81 mg DAILY PO Last administered on 01/28/18at 07: 52; Start 01/25/18 at 09:00 Bisacodyl (Dulcolax Supp) 10 mg PRN DAILY PRN RC CONSTIPATION; Start 01/24/18 at 22:00 Carbamide Peroxide (Debrox) 4 drop PRN DAILY PRN AU CERUMEN IMPACTION; Start at 22:45 Docusate Sodium (Colace) 100 mg BID PO Last administered on 01/28/18at 19:35; Start 01/25/18 at 09:00 Acetaminophen/ Hydrocodone Bitart (Lortab 5/325) 1 tab PRN Q6HRS PRN PO PAIN Last administered on 01/27/18 14:23; Start 01/24/18 at 22:00 Amylase/Lipase/ Protease (Zenpep 10,000) 1 cap QIDAFTMEAL PO Last administered on 01/25/18at 08:57; Start 01/25/18 at 08:00; Stop 01/25/18 at 12:17; Status DC Pantoprazole Sodium (Protonix) 20 mg DAILYAC PO Last administered on 01/28/18at 07:53; Start 01/25/18 at 07:30 Amylase/Lipase/ Protease (Zenpep 10,000) 1 cap TIDWMEALHC PO Last administered on 01/28/18at 19:43; Start 01/25/18 at 17:00 Amylase/Lipase/ Protease (Zenpep 10,000) 1 cap ONCE ONCE PO Last administered on 01/25/18at 12:43; Start 01/25/18 at 12:30; Stop 01/25/18 at 12:31; Status DC Sertraline HCl (Zoloft) 50 mg DAILY PO Last administered on 01/28/18at 07:52; Start 01/26/18 at 09:00 Divalproex Sodium (Depakote Sprinkles) 125 mg BID94 PO ; Start 01/27/18 at 09:00 ; Stop 01/27/18 at 09:00; Status DC Divalproex Sodium (Depakote Sprinkles) 125 mg BID@0900,1700 PO Last administered on 01/28/18at 17:00; Start 01/27/18 at 09:00 Cefpodoxime Proxetil (Vantin) 200 mg BID PO Last administered on 01/28/18at 19: 35; Start 01/27/18 at 21:00; Stop 02/04/18 at 20:59 Lactobacillus Rhamnosus (Culturelle) 1 cap BID PO Last administered on at 19:35; Start 01/27/18 at 21:00 Active Scripts Active Reported Nystop (Nystatin) 60 Gm Powder 1 Harpal TP PRN BID PRN Carbamide (Carbamide Peroxide) 15 Ml Drops 4 Drop OT PRN DAILY PRN Dulcolax (Bisacodyl) 10 Mg Supp.rect 10 Mg RC PRN DAILY PRN Promethazine Hcl 25 Mg Tablet 25 Mg PO PRN Q4HRS PRN Hydrocodone-Apap 5-325 (Hydrocodone Bit/Acetaminophen) 1 Each Tablet 1 Tab PO PRN Q6HRS PRN Morphine Sulfate 20 Mg/1 Ml Syringe 0.25-1 Ml SL PRN Q1HR PRN Atropine Sulfate 2 Ml Drops 2 Drop SL PRN Q2HR PRN Tylenol (Acetaminophen) 325 Mg Tablet 650 Mg PO PRN Q6HRS PRN Acetaminophen Supp (Acetaminophen) 650 Mg Supp.rect 650 Mg RC PRN Q4HRS PRN Creon 12,000 Units Capsule (Lipase/Protease/Amylase) 1 Each Capsule. 1 Cap PO QID Omeprazole 20 Mg Tablet.dr 20 Mg PO DAILY Docusate Sodium 100 Mg Capsule 100 Mg PO BID Gabapentin 300 Mg Capsule 300 Mg PO BID Escitalopram Oxalate 20 Mg Tablet 20 Mg PO DAILY Aspirin 81 Mg Tab.chew 81 Mg PO DAILY Melatonin 3 Mg Tablet 3 Mg PO HS Olanzapine 5 Mg Tablet 5 Mg PO HS Olanzapine 5 Mg Tablet 7.5 Mg PO DAILY I have reviewed the current psychotropics carefully including drug interactions. Risk benefit ratio favors no change other than as noted in my dictated progress note. Diagnosis: Problems: (1) Mental status change (2) Anxiety disorder (3) Dementia in Alzheimer's disease with delusions (4) Dementia in Alzheimer's disease with depression (5) Dementia, vascular, with delusions (6) Dementia, vascular, with depression (7) Impulse control disorder JANETH JIMENEZ MD January 28, 2018 20:48
--- NOTE | 2018-01-29 00:03 | PN ---
DATE: 01/27/2018 This is a late entry of 01/27/2018 covers elements not covered in my initial note of 01/27/2018. SUBJECTIVE: I met with the patient evening of 01/27/2018. Overall, the patient remains confused. The patient was agitated in the afternoon, received Lortab and was much better after that. Nursing staff wonder whether the pain is worsening her psychiatric symptoms and I will defer this to Dr. Tolentino. REVIEW OF SYSTEMS: No CV, , pulmonary, eye, ENT system symptoms on review. Reliability poor. Gait unsteady, in wheelchair. MENTAL STATUS EXAM: Oriented to herself. Insight, judgment, recent and remote memory, attention, concentration, fund of knowledge poor, consistent with her diagnosis mentioned in my initial note. IMPRESSION: Major neurocognitive disorder, Alzheimer, vascular with delusion, depression, behavioral disturbance. Rest unchanged. PLAN: Continue current psychotropics, Zoloft, Depakote was initiated, Zyprexa. Once the Depakote is stable, we will reduce the Zyprexa. She does have UTI and is on Vantin for this, which could have been worsening her psychiatric symptoms from the UTI. MAN Pavithra JIMENEZ MD DR: SVITLANA/brittney JOB#: [id number] / [id number]
--- NOTE | 2018-01-29 03:09 | PN ---
DATE: 01/28/2018 SUBJECTIVE: The patient was seen today, met with the staff, chart reviewed and also covering for Dr. Jean-Baptiste. Staff reports increased confusion, wandering, inappropriate with her behavior at times. She isolates herself, talks to herself, sometimes difficult to redirect. OBSERVATION: VITAL SIGNS: Temperature 97.1, blood pressure 118/58, pulse 61, respirations 18, O2 sat 98%. Slept about 8 hours last night. The patient's appetite is fair. The patient is on wheelchair. The patient also complains of chronic pain and apparently showed improvement when she was given the pain medications. The patient has not had any falls. MEDICATIONS: Reviewed. Currently on Depakote 125 mg t.i.d., Zoloft 50 mg daily, gabapentin 300 twice a day, Zyprexa 7.5 mg daily, also on olanzapine 5 mg at night, melatonin 3 mg at night. She is also on Protonix, aspirin. The patient's lab reviewed. The patient's glucose level was 150. The patient is needing assistance with ADLs. The patient is difficult to redirect because of confusion. The patient is not exhibiting any side effects from the medications. ASSESSMENT: Major neurocognitive disorder, most likely Alzheimer's and vascular with behavior problems, generalized anxiety disorder. PLAN: To continue with the treatment. WILLIAM REYES MD DR: MACIEJ/brittney JOB#: [id number] / [id number]
[2018-01-29 06:28] VITALS: BP 139/73
[2018-01-29] MEDS: DIVALPROEX 125 MG CAP.SPRINK PO SCH ×2 (07:45→16:59)
[2018-01-29] MEDS: SERTRALINE 50 MG TABLET. PO SCH (07:45)
[2018-01-29] MEDS: OLANZapine 7.5 MG TABLET PO SCH (07:45)
[2018-01-29] MEDS: DOCUSATE SODIUM 100 MG CAPSULE PO SCH ×2 (07:46→19:53)
[2018-01-29] MEDS: LACTOBACILLUS RHAMNOSUS GG 1 CAPSULE. PO SCH ×2 (07:46→19:53)
[2018-01-29] MEDS: CEFPODOXIME PROXETIL 100 MG TABLET PO SCH ×2 (07:47→19:52)
[2018-01-29] MEDS: PANTOPRAZOLE 40 MG TABLET. PO SCH (07:47)
[2018-01-29] MEDS: LIPASE/PROTEAS/AMYLAS 10/34/55 CAPSULE.DR. PO SCH ×4 (07:47→19:56)
[2018-01-29] MEDS: ASPIRIN 81 MG TAB.CHEW PO SCH (07:48)
[2018-01-29] MEDS: GABAPENTIN 300 MG CAPSULE. PO SCH ×2 (07:48→19:53)
[2018-01-29 09:42] LABS: BASO # 0.1 x10^3/uL (0.0-0.2); BASO % 1 % (0-3); EOS # 0.4 x10^3/uL (0.0-0.7); EOS % 4 % (0-3); HEMATOCRIT 46.2 % (36.0-47.0); HEMOGLOBIN 15.1 g/dL (12.0-15.5); LYMPH # 1.3 x10^3/uL (1.0-4.8); LYMPH % 14 % (24-48); MEAN CORPUSCULAR HEMOGLOBIN 27 pg (25-35); MEAN CORPUSCULAR HGB CONC 33 g/dL (31-37); MEAN CORPUSCULAR VOLUME 82 fL (79-100); MONO # 0.7 x10^3/uL (0.0-1.1); MONO % 7 % (0-9); NEUT # 6.9 x10^3uL (1.8-7.7); NEUT % 74 % (31-73); PLATELET COUNT 310 x10^3/uL (140-400); RED BLOOD COUNT 5.65 x10^6/uL (3.50-5.40); RED CELL DISTRIBUTION WIDTH 14.8 % (11.5-14.5); WHITE BLOOD COUNT 9.3 x10^3/uL (4.0-11.0)
[2018-01-29 10:10] LABS: ALBUMIN 3.5 g/dL (3.4-5.0); ALBUMIN/GLOBULIN RATIO 0.9 (1.0-1.7); ALK PHOS 118 U/L (46-116); ALT (SGPT) 43 U/L (14-59); ANION GAP 7 (6-14); AST (SGOT) 22 U/L (15-37); BLOOD UREA NITROGEN 13 mg/dL (7-20); BUN/CREATININE RATIO 22 (6-20); CALCIUM 9.5 mg/dL (8.5-10.1); CARBON DIOXIDE 33 mmol/L (21-32); CHLORIDE 103 mmol/L (98-107); CREATININE 0.6 mg/dL (0.6-1.0); GFR 96.2; GLUCOSE 172 mg/dL (70-99); POTASSIUM 3.7 mmol/L (3.5-5.1); SODIUM 143 mmol/L (136-145); TOTAL BILIRUBIN 0.4 mg/dL (0.2-1.0); TOTAL PROTEIN 7.5 g/dL (6.4-8.2)
[2018-01-29 10:16] LABS: VAL ACID 25 mcg/mL (50-100)
[2018-01-29 16:48] VITALS: BP 111/56
[2018-01-29] MEDS: MELATONIN 3 MG TABLET PO SCH (19:53)
[2018-01-29] MEDS: OLANZapine 5 MG TABLET PO SCH (19:53)
[2018-01-29] MEDS: MIRTAZAPINE 7.5 MG TABLET. PO SCH (19:56)
[2018-01-30 06:40] VITALS: BP 143/50
[2018-01-30] MEDS: OLANZapine 7.5 MG TABLET PO SCH (07:40)
[2018-01-30] MEDS: CEFPODOXIME PROXETIL 100 MG TABLET PO SCH ×2 (07:40→19:43)
[2018-01-30] MEDS: LIPASE/PROTEAS/AMYLAS 10/34/55 CAPSULE.DR. PO SCH ×4 (07:40→20:13)
[2018-01-30] MEDS: PANTOPRAZOLE 40 MG TABLET. PO SCH (07:40)
[2018-01-30] MEDS: DOCUSATE SODIUM 100 MG CAPSULE PO SCH ×2 (07:40→19:43)
[2018-01-30] MEDS: LACTOBACILLUS RHAMNOSUS GG 1 CAPSULE. PO SCH ×2 (07:40→19:43)
[2018-01-30] MEDS: GABAPENTIN 300 MG CAPSULE. PO SCH ×2 (07:41→19:43)
[2018-01-30] MEDS: ASPIRIN 81 MG TAB.CHEW PO SCH (07:41)
[2018-01-30] MEDS: DIVALPROEX 125 MG CAP.SPRINK PO SCH ×2 (07:41→17:23)
[2018-01-30] MEDS: SERTRALINE 50 MG TABLET. PO SCH (07:41)
[2018-01-30 16:45] VITALS: BP 113/60
[2018-01-30] MEDS: OLANZapine 5 MG TABLET PO SCH (19:43)
[2018-01-30] MEDS: MELATONIN 3 MG TABLET PO SCH (19:43)
[2018-01-30] MEDS: MIRTAZAPINE 7.5 MG TABLET. PO SCH (19:43)
--- NOTE | 2018-01-30 20:02 | PDOC ---
Exam Note: Cheikh Note: Late entry for date of service January 29, 2018. Please also refer to the separate dictated note~for this date of service dictated separately.~Patient seen individually. Discussed the patient with Nursing staff reviewed the chart.~ Reviewed interim history and current functioning. Reviewed vital signs,~Labs/ Radiology~and current medications noted below. Continue current treatment with the changes noted in the dictated addendum note Assessment: Vital Signs: VS - Last 72 Hours, by Label Date Time Temp Pulse Resp B/P (MAP) Pulse Ox O2 Delivery O2 Flow Rate FiO2 01/30/18 16:45 98.5 60 18 113/60 (77) 93 01/30/18 06:40 97.0 71 18 143/50 (81) 99 01/29/18 16:48 97.2 72 20 111/56 (74) 95 Room Air 01/29/18 06:28 97.6 61 20 139/73 (95) 93 01/28/18 16:20 97.8 67 18 123/60 (81) 96 01/28/18 06:13 97.1 61 18 118/58 (78) 98 Vital Signs Date Time Temp Pulse Resp B/P (MAP) Pulse Ox O2 Delivery O2 Flow Rate FiO2 01/30/18 16:45 98.5 60 18 113/60 (77) 93 01/29/18 16:48 Room Air I&O Intake and Output 01/30/18 07:00 Intake Total 600 ml Balance 600 ml Intake Oral 600 ml # Bowel Movements 1 Current Medications: Meds: Current Medications Ceftriaxone Sodium (Rocephin Im) 1 gm 1X ONCE IM Last administered on at 20:16; Start 01/24/18 at 20:00; Stop 01/24/18 at 20:01; Status DC Citalopram Hydrobromide (CeleXA) 40 mg DAILY PO Last administered on 01/25/18at 08:58; Start 01/25/18 at 09:00; Stop 01/25/18 at 20:08; Status DC Melatonin 3 mg HS PO Last administered on 01/30/18at 19:43; Start 01/24/18 at 22 :00 Olanzapine (ZyPREXA) 5 mg HS PO Last administered on 01/30/18at 19:43; Start at 22:00 Olanzapine (ZyPREXA) 7.5 mg DAILY PO Last administered on 01/30/18 07:40; Start 01/25/18 at 09:00 Al Hydroxide/Mg Hydroxide (Mylanta Plus Xs) 15 ml PRN AFTMEALHC PRN PO DYSPEPSIA; Start 01/24/18 at 22:00 Magnesium Hydroxide (Milk Of Magnesia) 2,400 mg PRN QHS PRN PO CONSTIPATION; Start 01/24/18 at 22:00 Acetaminophen (Tylenol) 650 mg PRN Q6HRS PRN PO PAIN / TEMP; Start 01/24/18 at 22:00 Gabapentin (Neurontin) 300 mg BID PO Last administered on 01/30/18at 19:43; Start 01/25/18 at 09:00 Nystatin (Nystop) 1 harpal PRN BID PRN TP RASH; Start 01/24/18 at 22:00 Promethazine HCl (Phenergan) 25 mg PRN Q4HRS PRN PO NAUSEA/VOMITING; Start at 22:00 Aspirin (Children'S Aspirin) 81 mg DAILY PO Last administered on 01/30/18at 07: 41; Start 01/25/18 at 09:00 Bisacodyl (Dulcolax Supp) 10 mg PRN DAILY PRN RC CONSTIPATION; Start 01/24/18 at 22:00 Carbamide Peroxide (Debrox) 4 drop PRN DAILY PRN AU CERUMEN IMPACTION; Start at 22:45 Docusate Sodium (Colace) 100 mg BID PO Last administered on 01/30/18at 19:43; Start 01/25/18 at 09:00 Acetaminophen/ Hydrocodone Bitart (Lortab 5/325) 1 tab PRN Q6HRS PRN PO PAIN Last administered on 01/27/18at 14:23; Start 01/24/18 at 22:00 Amylase/Lipase/ Protease (Zenpep 10,000) 1 cap QIDAFTMEAL PO Last administered on 01/25/18at 08:57; Start 01/25/18 at 08:00; Stop 01/25/18 at 12:17; Status DC Pantoprazole Sodium (Protonix) 20 mg DAILYAC PO Last administered on 01/30/18at 07:40; Start 01/25/18 at 07:30 Amylase/Lipase/ Protease (Zenpep 10,000) 1 cap TIDWMEALHC PO Last administered on 01/30/18 17:22; Start 01/25/18 at 17:00 Amylase/Lipase/ Protease (Zenpep 10,000) 1 cap ONCE ONCE PO Last administered on 01/25/18 12:43; Start 01/25/18 at 12:30; Stop 01/25/18 at 12:31; Status DC Sertraline HCl (Zoloft) 50 mg DAILY PO Last administered on 01/30/18at 07:41; Start 01/26/18 at 09:00 Divalproex Sodium (Depakote Sprinkles) 125 mg BID94 PO ; Start 01/27/18 at 09:00 ; Stop 01/27/18 at 09:00; Status DC Divalproex Sodium (Depakote Sprinkles) 125 mg BID@0900,1700 PO Last administered on 01/30/18 17:23; Start 01/27/18 at 09:00 Cefpodoxime Proxetil (Vantin) 200 mg BID PO Last administered on 01/30/18 19: 43; Start 01/27/18 at 21:00; Stop 02/04/18 at 20:59 Lactobacillus Rhamnosus (Culturelle) 1 cap BID PO Last administered on 19:43; Start 01/27/18 at 21:00 Mirtazapine (Remeron) 7.5 mg QHS PO Last administered on 01/30/18 19:43; Start 01/29/18 at 21:00 Active Scripts Active Reported Nystop (Nystatin) 60 Gm Powder 1 Harpal TP PRN BID PRN Carbamide (Carbamide Peroxide) 15 Ml Drops 4 Drop OT PRN DAILY PRN Dulcolax (Bisacodyl) 10 Mg Supp.rect 10 Mg RC PRN DAILY PRN Promethazine Hcl 25 Mg Tablet 25 Mg PO PRN Q4HRS PRN Hydrocodone-Apap 5-325 (Hydrocodone Bit/Acetaminophen) 1 Each Tablet 1 Tab PO PRN Q6HRS PRN Morphine Sulfate 20 Mg/1 Ml Syringe 0.25-1 Ml SL PRN Q1HR PRN Atropine Sulfate 2 Ml Drops 2 Drop SL PRN Q2HR PRN Tylenol (Acetaminophen) 325 Mg Tablet 650 Mg PO PRN Q6HRS PRN Acetaminophen Supp (Acetaminophen) 650 Mg Supp.rect 650 Mg RC PRN Q4HRS PRN Creon 12,000 Units Capsule (Lipase/Protease/Amylase) 1 Each Capsule. 1 Cap PO QID Omeprazole 20 Mg Tablet.dr 20 Mg PO DAILY Docusate Sodium 100 Mg Capsule 100 Mg PO BID Gabapentin 300 Mg Capsule 300 Mg PO BID Escitalopram Oxalate 20 Mg Tablet 20 Mg PO DAILY Aspirin 81 Mg Tab.chew 81 Mg PO DAILY Melatonin 3 Mg Tablet 3 Mg PO HS Olanzapine 5 Mg Tablet 5 Mg PO HS Olanzapine 5 Mg Tablet 7.5 Mg PO DAILY I have reviewed the current psychotropics carefully including drug interactions. Risk benefit ratio favors no change other than as noted in my dictated progress note. Diagnosis: Problems: (1) Mental status change (2) Anxiety disorder (3) Dementia in Alzheimer's disease with delusions (4) Dementia in Alzheimer's disease with depression (5) Dementia, vascular, with delusions (6) Dementia, vascular, with depression (7) Impulse control disorder JANETH JIMENEZ MD January 30, 2018 20:02
--- NOTE | 2018-01-30 20:36 | PDOC ---
Exam Note: Cheikh Note: Please also refer to the separate dictated note~for this date of service dictated separately.~Patient seen individually. Discussed the patient with Nursing staff reviewed the chart.~Reviewed interim history and current functioning. Reviewed vital signs,~Labs/ Radiology~and current medications noted below. Continue current treatment with the changes noted in the dictated addendum note Assessment: Vital Signs: Vital Signs Date Time Temp Pulse Resp B/P (MAP) Pulse Ox O2 Delivery O2 Flow Rate FiO2 01/30/18 16:45 98.5 60 18 113/60 (77) 93 01/29/18 16:48 Room Air I&O Intake and Output 01/30/18 07:00 Intake Total 600 ml Balance 600 ml Intake Oral 600 ml # Bowel Movements 1 Current Medications: Meds: Current Medications Ceftriaxone Sodium (Rocephin Im) 1 gm 1X ONCE IM Last administered on at 20:16; Start 01/24/18 at 20:00; Stop 01/24/18 at 20:01; Status DC Citalopram Hydrobromide (CeleXA) 40 mg DAILY PO Last administered on 01/25/18at 08:58; Start 01/25/18 at 09:00; Stop 01/25/18 at 20:08; Status DC Melatonin 3 mg HS PO Last administered on 01/30/18at 19:43; Start 01/24/18 at 22 :00 Olanzapine (ZyPREXA) 5 mg HS PO Last administered on 01/30/18at 19:43; Start at 22:00 Olanzapine (ZyPREXA) 7.5 mg DAILY PO Last administered on 01/30/18at 07:40; Start 01/25/18 at 09:00 Al Hydroxide/Mg Hydroxide (Mylanta Plus Xs) 15 ml PRN AFTMEALHC PRN PO DYSPEPSIA; Start 01/24/18 at 22:00 Magnesium Hydroxide (Milk Of Magnesia) 2,400 mg PRN QHS PRN PO CONSTIPATION; Start 01/24/18 at 22:00 Acetaminophen (Tylenol) 650 mg PRN Q6HRS PRN PO PAIN / TEMP; Start 01/24/18 at 22:00 Gabapentin (Neurontin) 300 mg BID PO Last administered on 01/30/18at 19:43; Start 01/25/18 at 09:00 Nystatin (Nystop) 1 harpal PRN BID PRN TP RASH; Start 01/24/18 at 22:00 Promethazine HCl (Phenergan) 25 mg PRN Q4HRS PRN PO NAUSEA/VOMITING; Start at 22:00 Aspirin (Children'S Aspirin) 81 mg DAILY PO Last administered on 01/30/18at 07: 41; Start 01/25/18 at 09:00 Bisacodyl (Dulcolax Supp) 10 mg PRN DAILY PRN RC CONSTIPATION; Start 01/24/18 at 22:00 Carbamide Peroxide (Debrox) 4 drop PRN DAILY PRN AU CERUMEN IMPACTION; Start at 22:45 Docusate Sodium (Colace) 100 mg BID PO Last administered on 01/30/18at 19:43; Start 01/25/18 at 09:00 Acetaminophen/ Hydrocodone Bitart (Lortab 5/325) 1 tab PRN Q6HRS PRN PO PAIN Last administered on 01/27/18at 14:23; Start 01/24/18 at 22:00 Amylase/Lipase/ Protease (Zenpep 10,000) 1 cap QIDAFTMEAL PO Last administered on 01/25/18at 08:57; Start 01/25/18 at 08:00; Stop 01/25/18 at 12:17; Status DC Pantoprazole Sodium (Protonix) 20 mg DAILYAC PO Last administered on 01/30/18at 07:40; Start 01/25/18 at 07:30 Amylase/Lipase/ Protease (Zenpep 10,000) 1 cap TIDWMEALHC PO Last administered on 01/30/18at 20:13; Start 01/25/18 at 17:00 Amylase/Lipase/ Protease (Zenpep 10,000) 1 cap ONCE ONCE PO Last administered on 01/25/18at 12:43; Start 01/25/18 at 12:30; Stop 01/25/18 at 12:31; Status DC Sertraline HCl (Zoloft) 50 mg DAILY PO Last administered on 01/30/18at 07:41; Start 01/26/18 at 09:00 Divalproex Sodium (Depakote Sprinkles) 125 mg BID94 PO ; Start 01/27/18 at 09:00 ; Stop 01/27/18 at 09:00; Status DC Divalproex Sodium (Depakote Sprinkles) 125 mg BID@0900,1700 PO Last administered on 01/30/18at 17:23; Start 01/27/18 at 09:00 Cefpodoxime Proxetil (Vantin) 200 mg BID PO Last administered on 01/30/18 19: 43; Start 01/27/18 at 21:00; Stop 02/04/18 at 20:59 Lactobacillus Rhamnosus (Culturelle) 1 cap BID PO Last administered on 19:43; Start 01/27/18 at 21:00 Mirtazapine (Remeron) 7.5 mg QHS PO Last administered on 01/30/18 19:43; Start 01/29/18 at 21:00 Active Scripts Active Reported Nystop (Nystatin) 60 Gm Powder 1 Harpal TP PRN BID PRN Carbamide (Carbamide Peroxide) 15 Ml Drops 4 Drop OT PRN DAILY PRN Dulcolax (Bisacodyl) 10 Mg Supp.rect 10 Mg RC PRN DAILY PRN Promethazine Hcl 25 Mg Tablet 25 Mg PO PRN Q4HRS PRN Hydrocodone-Apap 5-325 (Hydrocodone Bit/Acetaminophen) 1 Each Tablet 1 Tab PO PRN Q6HRS PRN Morphine Sulfate 20 Mg/1 Ml Syringe 0.25-1 Ml SL PRN Q1HR PRN Atropine Sulfate 2 Ml Drops 2 Drop SL PRN Q2HR PRN Tylenol (Acetaminophen) 325 Mg Tablet 650 Mg PO PRN Q6HRS PRN Acetaminophen Supp (Acetaminophen) 650 Mg Supp.rect 650 Mg RC PRN Q4HRS PRN Creon 12,000 Units Capsule (Lipase/Protease/Amylase) 1 Each Capsule. 1 Cap PO QID Omeprazole 20 Mg Tablet.dr 20 Mg PO DAILY Docusate Sodium 100 Mg Capsule 100 Mg PO BID Gabapentin 300 Mg Capsule 300 Mg PO BID Escitalopram Oxalate 20 Mg Tablet 20 Mg PO DAILY Aspirin 81 Mg Tab.chew 81 Mg PO DAILY Melatonin 3 Mg Tablet 3 Mg PO HS Olanzapine 5 Mg Tablet 5 Mg PO HS Olanzapine 5 Mg Tablet 7.5 Mg PO DAILY I have reviewed the current psychotropics carefully including drug interactions. Risk benefit ratio favors no change other than as noted in my dictated progress note. Diagnosis: Problems: (1) Mental status change (2) Anxiety disorder (3) Dementia in Alzheimer's disease with delusions (4) Dementia in Alzheimer's disease with depression (5) Dementia, vascular, with delusions (6) Dementia, vascular, with depression (7) Impulse control disorder JANETH JIMENEZ MD January 30, 2018 20:35
[2018-01-31 05:56] VITALS: BP 120/72
--- NOTE | 2018-01-31 09:14 | PN ---
DATE: 01/29/2018 PSYCHIATRIC PROGRESS NOTE This note covers elements not covered in my initial note of 01/29/2018. SUBJECTIVE: I met with the patient evening of 01/29/2018. The patient slept just 1-3/4 hours previous evening. She remains confused, often refuses medications, that have to be hidden in pudding per nursing report. She seemed to have some word salad the previous evening, otherwise cooperative. REVIEW OF SYSTEMS: Ambulation impaired, in wheelchair. No CV, , pulmonary, eye, ENT system symptoms on review. MENTAL STATUS EXAM: Oriented to herself. Insight, judgment, recent and remote memory, attention, concentration, fund of knowledge poor, consistent with her diagnosis mentioned in my initial note. IMPRESSION: Major neurocognitive disorder, Alzheimer, vascular with delusion, depression, behavioral disturbance. Rest unchanged. PLAN: Start Remeron 7.5 mg p.o. at bedtime to help the insomnia and anxiety. Maintain the rest unchanged from initial note. JANETH JIMENEZ MD DR: SVITLANA/brittney JOB#: [id number] / [id number]
[2018-01-31] MEDS: SERTRALINE 50 MG TABLET. PO SCH (09:37)
[2018-01-31] MEDS: LACTOBACILLUS RHAMNOSUS GG 1 CAPSULE. PO SCH ×2 (09:37→20:49)
[2018-01-31] MEDS: DIVALPROEX 125 MG CAP.SPRINK PO SCH ×2 (09:38→17:41)
[2018-01-31] MEDS: ASPIRIN 81 MG TAB.CHEW PO SCH (09:40)
[2018-01-31] MEDS: GABAPENTIN 300 MG CAPSULE. PO SCH ×2 (09:40→20:49)
[2018-01-31] MEDS: LIPASE/PROTEAS/AMYLAS 10/34/55 CAPSULE.DR. PO SCH ×4 (09:40→20:52)
[2018-01-31] MEDS: OLANZapine 7.5 MG TABLET PO SCH (09:40)
[2018-01-31] MEDS: DOCUSATE SODIUM 100 MG CAPSULE PO SCH ×2 (09:40→20:51)
[2018-01-31] MEDS: PANTOPRAZOLE 40 MG TABLET. PO SCH (09:40)
[2018-01-31] MEDS: CEFPODOXIME PROXETIL 100 MG TABLET PO SCH ×2 (09:41→20:52)
[2018-01-31 16:10] VITALS: BP 107/52
[2018-01-31] MEDS: MELATONIN 3 MG TABLET PO SCH (20:49)
[2018-01-31] MEDS: MIRTAZAPINE 7.5 MG TABLET. PO SCH (20:49)
[2018-01-31] MEDS: OLANZapine 5 MG TABLET PO SCH (20:52)
--- NOTE | 2018-01-31 20:52 | PDOC ---
Exam Note: Cheikh Note: Please also refer to the separate dictated note~for this date of service dictated separately.~Patient seen individually. Discussed the patient with Nursing staff reviewed the chart.~Reviewed interim history and current functioning. Reviewed vital signs,~Labs/ Radiology~and current medications noted below. Continue current treatment with the changes noted in the dictated addendum note Assessment: Vital Signs: Vital Signs Date Time Temp Pulse Resp B/P (MAP) Pulse Ox O2 Delivery O2 Flow Rate FiO2 01/31/18 16:10 96.7 62 18 107/52 (70) 100 01/29/18 16:48 Room Air I&O Intake and Output 01/31/18 07:00 Intake Total 300 ml Balance 300 ml Intake Oral 300 ml Current Medications: Meds: Current Medications Ceftriaxone Sodium (Rocephin Im) 1 gm 1X ONCE IM Last administered on at 20:16; Start 01/24/18 at 20:00; Stop 01/24/18 at 20:01; Status DC Citalopram Hydrobromide (CeleXA) 40 mg DAILY PO Last administered on 01/25/18at 08:58; Start 01/25/18 at 09:00; Stop 01/25/18 at 20:08; Status DC Melatonin 3 mg HS PO Last administered on 01/30/18at 19:43; Start 01/24/18 at 22 :00 Olanzapine (ZyPREXA) 5 mg HS PO Last administered on 01/30/18at 19:43; Start at 22:00 Olanzapine (ZyPREXA) 7.5 mg DAILY PO Last administered on 01/31/18at 09:40; Start 01/25/18 at 09:00 Al Hydroxide/Mg Hydroxide (Mylanta Plus Xs) 15 ml PRN AFTMEALHC PRN PO DYSPEPSIA; Start 01/24/18 at 22:00 Magnesium Hydroxide (Milk Of Magnesia) 2,400 mg PRN QHS PRN PO CONSTIPATION; Start 01/24/18 at 22:00 Acetaminophen (Tylenol) 650 mg PRN Q6HRS PRN PO PAIN / TEMP; Start 01/24/18 at 22:00 Gabapentin (Neurontin) 300 mg BID PO Last administered on 01/31/18at 09:40; Start 01/25/18 at 09:00 Nystatin (Nystop) 1 harpal PRN BID PRN TP RASH; Start 01/24/18 at 22:00 Promethazine HCl (Phenergan) 25 mg PRN Q4HRS PRN PO NAUSEA/VOMITING; Start at 22:00 Aspirin (Children'S Aspirin) 81 mg DAILY PO Last administered on 01/31/18 09: 40; Start 01/25/18 at 09:00 Bisacodyl (Dulcolax Supp) 10 mg PRN DAILY PRN RC CONSTIPATION; Start 01/24/18 at 22:00 Carbamide Peroxide (Debrox) 4 drop PRN DAILY PRN AU CERUMEN IMPACTION; Start at 22:45 Docusate Sodium (Colace) 100 mg BID PO Last administered on 01/31/18 09:40; Start 01/25/18 at 09:00 Acetaminophen/ Hydrocodone Bitart (Lortab 5/325) 1 tab PRN Q6HRS PRN PO PAIN Last administered on 01/27/18 14:23; Start 01/24/18 at 22:00 Amylase/Lipase/ Protease (Zenpep 10,000) 1 cap QIDAFTMEAL PO Last administered on 01/25/18at 08:57; Start 01/25/18 at 08:00; Stop 01/25/18 at 12:17; Status DC Pantoprazole Sodium (Protonix) 20 mg DAILYAC PO Last administered on 01/31/18 09:40; Start 01/25/18 at 07:30 Amylase/Lipase/ Protease (Zenpep 10,000) 1 cap TIDWMEALHC PO Last administered on 01/31/18 17:41; Start 01/25/18 at 17:00 Amylase/Lipase/ Protease (Zenpep 10,000) 1 cap ONCE ONCE PO Last administered on 01/25/18at 12:43; Start 01/25/18 at 12:30; Stop 01/25/18 at 12:31; Status DC Sertraline HCl (Zoloft) 50 mg DAILY PO Last administered on 01/31/18 09:37; Start 01/26/18 at 09:00 Divalproex Sodium (Depakote Sprinkles) 125 mg BID94 PO ; Start 01/27/18 at 09:00 ; Stop 01/27/18 at 09:00; Status DC Divalproex Sodium (Depakote Sprinkles) 125 mg BID@0900,1700 PO Last administered on 01/31/18at 17:41; Start 01/27/18 at 09:00 Cefpodoxime Proxetil (Vantin) 200 mg BID PO Last administered on 01/31/18at 09: 41; Start 01/27/18 at 21:00; Stop 02/04/18 at 20:59 Lactobacillus Rhamnosus (Culturelle) 1 cap BID PO Last administered on at 09:37; Start 01/27/18 at 21:00 Mirtazapine (Remeron) 7.5 mg QHS PO Last administered on 01/30/18at 19:43; Start 01/29/18 at 21:00 Active Scripts Active Reported Nystop (Nystatin) 60 Gm Powder 1 Harpal TP PRN BID PRN Carbamide (Carbamide Peroxide) 15 Ml Drops 4 Drop OT PRN DAILY PRN Dulcolax (Bisacodyl) 10 Mg Supp.rect 10 Mg RC PRN DAILY PRN Promethazine Hcl 25 Mg Tablet 25 Mg PO PRN Q4HRS PRN Hydrocodone-Apap 5-325 (Hydrocodone Bit/Acetaminophen) 1 Each Tablet 1 Tab PO PRN Q6HRS PRN Morphine Sulfate 20 Mg/1 Ml Syringe 0.25-1 Ml SL PRN Q1HR PRN Atropine Sulfate 2 Ml Drops 2 Drop SL PRN Q2HR PRN Tylenol (Acetaminophen) 325 Mg Tablet 650 Mg PO PRN Q6HRS PRN Acetaminophen Supp (Acetaminophen) 650 Mg Supp.rect 650 Mg RC PRN Q4HRS PRN Creon 12,000 Units Capsule (Lipase/Protease/Amylase) 1 Each Capsule. 1 Cap PO QID Omeprazole 20 Mg Tablet.dr 20 Mg PO DAILY Docusate Sodium 100 Mg Capsule 100 Mg PO BID Gabapentin 300 Mg Capsule 300 Mg PO BID Escitalopram Oxalate 20 Mg Tablet 20 Mg PO DAILY Aspirin 81 Mg Tab.chew 81 Mg PO DAILY Melatonin 3 Mg Tablet 3 Mg PO HS Olanzapine 5 Mg Tablet 5 Mg PO HS Olanzapine 5 Mg Tablet 7.5 Mg PO DAILY I have reviewed the current psychotropics carefully including drug interactions. Risk benefit ratio favors no change other than as noted in my dictated progress note. Diagnosis: Problems: (1) Mental status change (2) Anxiety disorder (3) Dementia in Alzheimer's disease with delusions (4) Dementia in Alzheimer's disease with depression (5) Dementia, vascular, with delusions (6) Dementia, vascular, with depression (7) Impulse control disorder JANETH JIMENEZ MD January 31, 2018 20:52
[2018-02-01 05:55] VITALS: BP 109/50
[2018-02-01] MEDS: LIPASE/PROTEAS/AMYLAS 10/34/55 CAPSULE.DR. PO SCH ×4 (08:00→20:01)
[2018-02-01] MEDS: GABAPENTIN 300 MG CAPSULE. PO SCH ×2 (08:01→20:00)
[2018-02-01] MEDS: PANTOPRAZOLE 40 MG TABLET. PO SCH (08:01)
[2018-02-01] MEDS: DOCUSATE SODIUM 100 MG CAPSULE PO SCH ×2 (08:01→20:00)
[2018-02-01] MEDS: OLANZapine 7.5 MG TABLET PO SCH (08:01)
[2018-02-01] MEDS: LACTOBACILLUS RHAMNOSUS GG 1 CAPSULE. PO SCH ×2 (08:01→20:00)
[2018-02-01] MEDS: ASPIRIN 81 MG TAB.CHEW PO SCH (08:01)
[2018-02-01] MEDS: SERTRALINE 50 MG TABLET. PO SCH (08:01)
[2018-02-01] MEDS: CEFPODOXIME PROXETIL 100 MG TABLET PO SCH ×2 (08:01→20:00)
[2018-02-01] MEDS: DIVALPROEX 125 MG CAP.SPRINK PO SCH ×2 (08:01→18:25)
[2018-02-01 16:25] VITALS: BP 106/61
--- NOTE | 2018-02-01 19:55 | PDOC ---
Exam Note: Cheikh Note: Please also refer to the separate dictated note~for this date of service dictated separately.~Patient seen individually. Discussed the patient with Nursing staff reviewed the chart.~Reviewed interim history and current functioning. Reviewed vital signs,~Labs/ Radiology~and current medications noted below. Continue current treatment with the changes noted in the dictated addendum note Assessment: Vital Signs: Vital Signs Date Time Temp Pulse Resp B/P (MAP) Pulse Ox O2 Delivery O2 Flow Rate FiO2 02/01/18 16:25 97.4 67 20 106/61 (76) 96 02/01/18 05:55 Room Air I&O Intake and Output 02/01/18 07:00 Intake Total 920 ml Balance 920 ml Intake Oral 920 ml Current Medications: Meds: Current Medications Ceftriaxone Sodium (Rocephin Im) 1 gm 1X ONCE IM Last administered on at 20:16; Start 01/24/18 at 20:00; Stop 01/24/18 at 20:01; Status DC Citalopram Hydrobromide (CeleXA) 40 mg DAILY PO Last administered on 01/25/18at 08:58; Start 01/25/18 at 09:00; Stop 01/25/18 at 20:08; Status DC Melatonin 3 mg HS PO Last administered on 01/31/18at 20:49; Start 01/24/18 at 22 :00 Olanzapine (ZyPREXA) 5 mg HS PO Last administered on 01/31/18at 20:52; Start at 22:00; Stop 02/01/18 at 19:30; Status DC Olanzapine (ZyPREXA) 7.5 mg DAILY PO Last administered on 02/01/18at 08:01; Start 01/25/18 at 09:00; Stop 02/01/18 at 19:30; Status DC Al Hydroxide/Mg Hydroxide (Mylanta Plus Xs) 15 ml PRN AFTMEALHC PRN PO DYSPEPSIA; Start 01/24/18 at 22:00 Magnesium Hydroxide (Milk Of Magnesia) 2,400 mg PRN QHS PRN PO CONSTIPATION; Start 01/24/18 at 22:00 Acetaminophen (Tylenol) 650 mg PRN Q6HRS PRN PO PAIN / TEMP; Start 01/24/18 at 22:00 Gabapentin (Neurontin) 300 mg BID PO Last administered on 02/01/18 08:01; Start 01/25/18 at 09:00 Nystatin (Nystop) 1 harpal PRN BID PRN TP RASH; Start 01/24/18 at 22:00 Promethazine HCl (Phenergan) 25 mg PRN Q4HRS PRN PO NAUSEA/VOMITING; Start at 22:00 Aspirin (Children'S Aspirin) 81 mg DAILY PO Last administered on 02/01/18 08: 01; Start 01/25/18 at 09:00 Bisacodyl (Dulcolax Supp) 10 mg PRN DAILY PRN RC CONSTIPATION; Start 01/24/18 at 22:00 Carbamide Peroxide (Debrox) 4 drop PRN DAILY PRN AU CERUMEN IMPACTION; Start at 22:45 Docusate Sodium (Colace) 100 mg BID PO Last administered on 02/01/18 08:01; Start 01/25/18 at 09:00 Acetaminophen/ Hydrocodone Bitart (Lortab 5/325) 1 tab PRN Q6HRS PRN PO PAIN Last administered on 01/27/18 14:23; Start 01/24/18 at 22:00 Amylase/Lipase/ Protease (Zenpep 10,000) 1 cap QIDAFTMEAL PO Last administered on 01/25/18 08:57; Start 01/25/18 at 08:00; Stop 01/25/18 at 12:17; Status DC Pantoprazole Sodium (Protonix) 20 mg DAILYAC PO Last administered on 02/01/18 08:01; Start 01/25/18 at 07:30 Amylase/Lipase/ Protease (Zenpep 10,000) 1 cap TIDWMEALHC PO Last administered on 02/01/18 18:25; Start 01/25/18 at 17:00 Amylase/Lipase/ Protease (Zenpep 10,000) 1 cap ONCE ONCE PO Last administered on 01/25/18 12:43; Start 01/25/18 at 12:30; Stop 01/25/18 at 12:31; Status DC Sertraline HCl (Zoloft) 50 mg DAILY PO Last administered on 02/01/18 08:01; Start 01/26/18 at 09:00 Divalproex Sodium (Depakote Sprinkles) 125 mg BID94 PO ; Start 01/27/18 at 09:00 ; Stop 01/27/18 at 09:00; Status DC Divalproex Sodium (Depakote Sprinkles) 125 mg BID@0900,1700 PO Last administered on 02/01/18at 18:25; Start 01/27/18 at 09:00 Cefpodoxime Proxetil (Vantin) 200 mg BID PO Last administered on 02/01/18at 08: 01; Start 01/27/18 at 21:00; Stop 02/04/18 at 20:59 Lactobacillus Rhamnosus (Culturelle) 1 cap BID PO Last administered on at 08:01; Start 01/27/18 at 21:00 Mirtazapine (Remeron) 7.5 mg QHS PO Last administered on 01/31/18at 20:49; Start 01/29/18 at 21:00 Olanzapine (ZyPREXA) 5 mg BID PO ; Start 02/01/18 at 21:00 Active Scripts Active Reported Nystop (Nystatin) 60 Gm Powder 1 Harpal TP PRN BID PRN Carbamide (Carbamide Peroxide) 15 Ml Drops 4 Drop OT PRN DAILY PRN Dulcolax (Bisacodyl) 10 Mg Supp.rect 10 Mg RC PRN DAILY PRN Promethazine Hcl 25 Mg Tablet 25 Mg PO PRN Q4HRS PRN Hydrocodone-Apap 5-325 (Hydrocodone Bit/Acetaminophen) 1 Each Tablet 1 Tab PO PRN Q6HRS PRN Morphine Sulfate 20 Mg/1 Ml Syringe 0.25-1 Ml SL PRN Q1HR PRN Atropine Sulfate 2 Ml Drops 2 Drop SL PRN Q2HR PRN Tylenol (Acetaminophen) 325 Mg Tablet 650 Mg PO PRN Q6HRS PRN Acetaminophen Supp (Acetaminophen) 650 Mg Supp.rect 650 Mg RC PRN Q4HRS PRN Edgar Rivero 12,000 Units Capsule (Lipase/Protease/Amylase) 1 Each Capsule. 1 Cap PO QID Omeprazole 20 Mg Tablet.dr 20 Mg PO DAILY Docusate Sodium 100 Mg Capsule 100 Mg PO BID Gabapentin 300 Mg Capsule 300 Mg PO BID Escitalopram Oxalate 20 Mg Tablet 20 Mg PO DAILY Aspirin 81 Mg Tab.chew 81 Mg PO DAILY Melatonin 3 Mg Tablet 3 Mg PO HS Olanzapine 5 Mg Tablet 5 Mg PO HS Olanzapine 5 Mg Tablet 7.5 Mg PO DAILY I have reviewed the current psychotropics carefully including drug interactions. Risk benefit ratio favors no change other than as noted in my dictated progress note. Diagnosis: Problems: (1) Mental status change (2) Anxiety disorder (3) Dementia in Alzheimer's disease with delusions (4) Dementia in Alzheimer's disease with depression (5) Dementia, vascular, with delusions (6) Dementia, vascular, with depression (7) Impulse control disorder JANETH JIMENEZ MD February 01, 2018 19:55
[2018-02-01] MEDS: MIRTAZAPINE 7.5 MG TABLET. PO SCH (20:00)
[2018-02-01] MEDS: MELATONIN 3 MG TABLET PO SCH (20:01)
[2018-02-01] MEDS: OLANZapine 5 MG TABLET PO SCH (20:01)
--- NOTE | 2018-02-01 21:58 | PN ---
DATE: 01/30/2018 PSYCHIATRIC PROGRESS NOTE This late entry 01/30/2018 covers elements not covered in my initial note of 01/30/2018. SUBJECTIVE: I met with the patient in the evening. The patient slept 5-1/2 hours, cooperative. Her daughter visited and son-in-law visited as well. She seemed to recognize them. REVIEW OF SYSTEMS: Ambulation is impaired, in wheelchair. No CV, , pulmonary, eye system symptoms on review, not very verbal. MENTAL STATUS EXAM: Oriented to herself. Insight, judgment, recent and remote memory, attention, concentration, fund of knowledge is poor, consistent with her diagnoses mentioned in my initial note. PLAN: Continue psychotropics from my initial note. MAN Pavithra JIMENEZ MD DR: SVITLANA/brittney JOB#: [id number] / [id number]
--- NOTE | 2018-02-01 22:02 | PN ---
DATE: 01/31/2018 PSYCHIATRIC PROGRESS NOTE This is a late entry 01/31/2018 covers elements not covered in my initial note of 01/31/2018. SUBJECTIVE: I met with the patient in the evening, staffed at a treatment team meeting with the entire team in the morning and the patient's daughters, Fanta and Anita attended. Lengthy discussion about the patient's diagnosis including UTI, her dementia, the fact we need to taper the Zyprexa. I would like to wait for resolution of UTI to assess her symptoms before we taper the Zyprexa. She slept 7 hours. Appetite 75%. REVIEW OF SYSTEMS: Ambulation impaired, in wheelchair. No CV, , pulmonary, eye, ENT system symptoms on review. Reliability poor. MENTAL STATUS EXAM: Oriented to herself. Insight, judgment, recent and remote memory, attention, concentration, fund of knowledge poor, consistent with her diagnosis. IMPRESSION: Major neurocognitive disorder, Alzheimer, vascular with delusion, depression, behavioral disturbance. Rest unchanged. PLAN: Continue psychotropics mentioned in my initial note. She takes her medications crushed. Starting Sunday, I will reduce the Zyprexa and then try and reduce it further depending on how she responds to the initial dosage. By then, she would have had an adequate treatment for her UTI and symptoms relevant to this from a psychiatric standpoint should have minimized by then and what we see is what we have from a psychiatric standpoint at that stage. MAN Pavithra JIMENEZ MD DR: SVITLANA/brittney JOB#: [id number] / [id number]
[2018-02-02 06:30] VITALS: BP 106/51
[2018-02-02] MEDS: DIVALPROEX 125 MG CAP.SPRINK PO SCH ×2 (07:30→17:38)
[2018-02-02] MEDS: OLANZapine 5 MG TABLET PO SCH ×2 (07:30→21:00)
[2018-02-02] MEDS: LACTOBACILLUS RHAMNOSUS GG 1 CAPSULE. PO SCH ×2 (07:30→21:00)
[2018-02-02] MEDS: PANTOPRAZOLE 40 MG TABLET. PO SCH (07:30)
[2018-02-02] MEDS: SERTRALINE 50 MG TABLET. PO SCH (07:30)
[2018-02-02] MEDS: ASPIRIN 81 MG TAB.CHEW PO SCH (07:30)
[2018-02-02] MEDS: LIPASE/PROTEAS/AMYLAS 10/34/55 CAPSULE.DR. PO SCH ×4 (07:30→21:00)
[2018-02-02] MEDS: CEFPODOXIME PROXETIL 100 MG TABLET PO SCH ×2 (07:30→21:00)
[2018-02-02] MEDS: DOCUSATE SODIUM 100 MG CAPSULE PO SCH ×2 (07:30→21:00)
[2018-02-02] MEDS: GABAPENTIN 300 MG CAPSULE. PO SCH ×2 (07:30→21:00)
[2018-02-02 16:24] VITALS: BP 108/52
[2018-02-02] MEDS: MIRTAZAPINE 7.5 MG TABLET. PO SCH (21:00)
[2018-02-02] MEDS: MELATONIN 3 MG TABLET PO SCH (21:01)
--- NOTE | 2018-02-02 23:26 | PDOC ---
Exam Note: Cheikh Note: Please also refer to the separate dictated note~for this date of service dictated separately.~Patient seen individually. Discussed the patient with Nursing staff reviewed the chart.~Reviewed interim history and current functioning. Reviewed vital signs,~Labs/ Radiology~and current medications noted below. Continue current treatment with the changes noted in the dictated addendum note Assessment: Vital Signs: Vital Signs Date Time Temp Pulse Resp B/P (MAP) Pulse Ox O2 Delivery O2 Flow Rate FiO2 02/02/18 16:24 97.1 63 18 108/52 (70) 95 02/01/18 05:55 Room Air I&O Intake and Output 02/02/18 07:00 Intake Total 1440 ml Balance 1440 ml Intake Oral 1440 ml Current Medications: Meds: Current Medications Ceftriaxone Sodium (Rocephin Im) 1 gm 1X ONCE IM Last administered on at 20:16; Start 01/24/18 at 20:00; Stop 01/24/18 at 20:01; Status DC Citalopram Hydrobromide (CeleXA) 40 mg DAILY PO Last administered on 01/25/18at 08:58; Start 01/25/18 at 09:00; Stop 01/25/18 at 20:08; Status DC Melatonin 3 mg HS PO Last administered on 02/02/18at 21:01; Start 01/24/18 at 22 :00 Olanzapine (ZyPREXA) 5 mg HS PO Last administered on 01/31/18at 20:52; Start at 22:00; Stop 02/01/18 at 19:30; Status DC Olanzapine (ZyPREXA) 7.5 mg DAILY PO Last administered on 02/01/18at 08:01; Start 01/25/18 at 09:00; Stop 02/01/18 at 19:30; Status DC Al Hydroxide/Mg Hydroxide (Mylanta Plus Xs) 15 ml PRN AFTMEALHC PRN PO DYSPEPSIA; Start 01/24/18 at 22:00 Magnesium Hydroxide (Milk Of Magnesia) 2,400 mg PRN QHS PRN PO CONSTIPATION; Start 01/24/18 at 22:00 Acetaminophen (Tylenol) 650 mg PRN Q6HRS PRN PO PAIN / TEMP; Start 01/24/18 at 22:00 Gabapentin (Neurontin) 300 mg BID PO Last administered on 02/02/18 21:00; Start 01/25/18 at 09:00 Nystatin (Nystop) 1 harpal PRN BID PRN TP RASH; Start 01/24/18 at 22:00 Promethazine HCl (Phenergan) 25 mg PRN Q4HRS PRN PO NAUSEA/VOMITING; Start at 22:00 Aspirin (Children'S Aspirin) 81 mg DAILY PO Last administered on 02/02/18at 07: 30; Start 01/25/18 at 09:00 Bisacodyl (Dulcolax Supp) 10 mg PRN DAILY PRN RC CONSTIPATION; Start 01/24/18 at 22:00 Carbamide Peroxide (Debrox) 4 drop PRN DAILY PRN AU CERUMEN IMPACTION; Start at 22:45 Docusate Sodium (Colace) 100 mg BID PO Last administered on 02/02/18 21:00; Start 01/25/18 at 09:00 Acetaminophen/ Hydrocodone Bitart (Lortab 5/325) 1 tab PRN Q6HRS PRN PO PAIN Last administered on 01/27/18 14:23; Start 01/24/18 at 22:00 Amylase/Lipase/ Protease (Zenpep 10,000) 1 cap QIDAFTMEAL PO Last administered on 01/25/18 08:57; Start 01/25/18 at 08:00; Stop 01/25/18 at 12:17; Status DC Pantoprazole Sodium (Protonix) 20 mg DAILYAC PO Last administered on 02/02/18 07:30; Start 01/25/18 at 07:30 Amylase/Lipase/ Protease (Zenpep 10,000) 1 cap TIDWMEALHC PO Last administered on 02/02/18 17:38; Start 01/25/18 at 17:00 Amylase/Lipase/ Protease (Zenpep 10,000) 1 cap ONCE ONCE PO Last administered on 01/25/18 12:43; Start 01/25/18 at 12:30; Stop 01/25/18 at 12:31; Status DC Sertraline HCl (Zoloft) 50 mg DAILY PO Last administered on 02/02/18at 07:30; Start 01/26/18 at 09:00 Divalproex Sodium (Depakote Sprinkles) 125 mg BID94 PO ; Start 01/27/18 at 09:00 ; Stop 01/27/18 at 09:00; Status DC Divalproex Sodium (Depakote Sprinkles) 125 mg BID@0900,1700 PO Last administered on 02/02/18at 17:38; Start 01/27/18 at 09:00 Cefpodoxime Proxetil (Vantin) 200 mg BID PO Last administered on 02/02/18at 21: 00; Start 01/27/18 at 21:00; Stop 02/04/18 at 20:59 Lactobacillus Rhamnosus (Culturelle) 1 cap BID PO Last administered on at 21:00; Start 01/27/18 at 21:00 Mirtazapine (Remeron) 7.5 mg QHS PO Last administered on 02/02/18at 21:00; Start 01/29/18 at 21:00 Olanzapine (ZyPREXA) 5 mg BID PO Last administered on 02/02/18at 21:00; Start at 21:00 Active Scripts Active Reported Nystop (Nystatin) 60 Gm Powder 1 Harpal TP PRN BID PRN Carbamide (Carbamide Peroxide) 15 Ml Drops 4 Drop OT PRN DAILY PRN Dulcolax (Bisacodyl) 10 Mg Supp.rect 10 Mg RC PRN DAILY PRN Promethazine Hcl 25 Mg Tablet 25 Mg PO PRN Q4HRS PRN Hydrocodone-Apap 5-325 (Hydrocodone Bit/Acetaminophen) 1 Each Tablet 1 Tab PO PRN Q6HRS PRN Morphine Sulfate 20 Mg/1 Ml Syringe 0.25-1 Ml SL PRN Q1HR PRN Atropine Sulfate 2 Ml Drops 2 Drop SL PRN Q2HR PRN Tylenol (Acetaminophen) 325 Mg Tablet 650 Mg PO PRN Q6HRS PRN Acetaminophen Supp (Acetaminophen) 650 Mg Supp.rect 650 Mg RC PRN Q4HRS PRN Edgar Rivero 12,000 Units Capsule (Lipase/Protease/Amylase) 1 Each Capsule. 1 Cap PO QID Omeprazole 20 Mg Tablet. 20 Mg PO DAILY Docusate Sodium 100 Mg Capsule 100 Mg PO BID Gabapentin 300 Mg Capsule 300 Mg PO BID Escitalopram Oxalate 20 Mg Tablet 20 Mg PO DAILY Aspirin 81 Mg Tab.chew 81 Mg PO DAILY Melatonin 3 Mg Tablet 3 Mg PO HS Olanzapine 5 Mg Tablet 5 Mg PO HS Olanzapine 5 Mg Tablet 7.5 Mg PO DAILY I have reviewed the current psychotropics carefully including drug interactions. Risk benefit ratio favors no change other than as noted in my dictated progress note. Diagnosis: Problems: (1) Mental status change (2) Anxiety disorder (3) Dementia in Alzheimer's disease with delusions (4) Dementia in Alzheimer's disease with depression (5) Dementia, vascular, with delusions (6) Dementia, vascular, with depression (7) Impulse control disorder JANETH JIMENEZ MD February 02, 2018 23:26
[2018-02-03] MEDS: LACTOBACILLUS RHAMNOSUS GG 1 CAPSULE. PO SCH ×2 (07:31→19:38)
[2018-02-03] MEDS: GABAPENTIN 300 MG CAPSULE. PO SCH ×2 (07:31→19:38)
[2018-02-03] MEDS: ASPIRIN 81 MG TAB.CHEW PO SCH (07:31)
[2018-02-03] MEDS: SERTRALINE 50 MG TABLET. PO SCH (07:31)
[2018-02-03] MEDS: DOCUSATE SODIUM 100 MG CAPSULE PO SCH ×2 (07:31→19:38)
[2018-02-03] MEDS: CEFPODOXIME PROXETIL 100 MG TABLET PO SCH ×2 (07:31→19:39)
[2018-02-03] MEDS: OLANZapine 5 MG TABLET PO SCH ×2 (07:31→19:38)
[2018-02-03] MEDS: DIVALPROEX 125 MG CAP.SPRINK PO SCH ×2 (07:31→17:00)
[2018-02-03] MEDS: LIPASE/PROTEAS/AMYLAS 10/34/55 CAPSULE.DR. PO SCH ×4 (07:31→19:40)
[2018-02-03] MEDS: PANTOPRAZOLE 40 MG TABLET. PO SCH (07:32)
[2018-02-03 09:59] VITALS: BP 108/52
[2018-02-03 16:51] VITALS: BP 114/55
[2018-02-03] MEDS: MELATONIN 3 MG TABLET PO SCH (19:38)
[2018-02-03] MEDS: MIRTAZAPINE 7.5 MG TABLET. PO SCH (19:38)
--- NOTE | 2018-02-03 21:02 | PDOC ---
Exam Note: Cheikh Note: Please also refer to the separate dictated note~for this date of service dictated separately.~Patient seen individually. Discussed the patient with Nursing staff reviewed the chart.~Reviewed interim history and current functioning. Reviewed vital signs,~Labs/ Radiology~and current medications noted below. Continue current treatment with the changes noted in the dictated addendum note Assessment: Vital Signs: Vital Signs Date Time Temp Pulse Resp B/P (MAP) Pulse Ox O2 Delivery O2 Flow Rate FiO2 02/03/18 16:51 96.4 63 20 114/55 (74) 97 02/01/18 05:55 Room Air I&O Intake and Output 02/03/18 07:00 Intake Total 720 ml Balance 720 ml Intake Oral 720 ml Current Medications: Meds: Current Medications Ceftriaxone Sodium (Rocephin Im) 1 gm 1X ONCE IM Last administered on at 20:16; Start 01/24/18 at 20:00; Stop 01/24/18 at 20:01; Status DC Citalopram Hydrobromide (CeleXA) 40 mg DAILY PO Last administered on 01/25/18at 08:58; Start 01/25/18 at 09:00; Stop 01/25/18 at 20:08; Status DC Melatonin 3 mg HS PO Last administered on 02/03/18at 19:38; Start 01/24/18 at 22 :00 Olanzapine (ZyPREXA) 5 mg HS PO Last administered on 01/31/18at 20:52; Start at 22:00; Stop 02/01/18 at 19:30; Status DC Olanzapine (ZyPREXA) 7.5 mg DAILY PO Last administered on 02/01/18at 08:01; Start 01/25/18 at 09:00; Stop 02/01/18 at 19:30; Status DC Al Hydroxide/Mg Hydroxide (Mylanta Plus Xs) 15 ml PRN AFTMEALHC PRN PO DYSPEPSIA; Start 01/24/18 at 22:00 Magnesium Hydroxide (Milk Of Magnesia) 2,400 mg PRN QHS PRN PO CONSTIPATION; Start 01/24/18 at 22:00 Acetaminophen (Tylenol) 650 mg PRN Q6HRS PRN PO PAIN / TEMP; Start 01/24/18 at 22:00 Gabapentin (Neurontin) 300 mg BID PO Last administered on 02/03/18 19:38; Start 01/25/18 at 09:00 Nystatin (Nystop) 1 harpal PRN BID PRN TP RASH; Start 01/24/18 at 22:00 Promethazine HCl (Phenergan) 25 mg PRN Q4HRS PRN PO NAUSEA/VOMITING; Start at 22:00 Aspirin (Children'S Aspirin) 81 mg DAILY PO Last administered on 02/03/18 07: 31; Start 01/25/18 at 09:00 Bisacodyl (Dulcolax Supp) 10 mg PRN DAILY PRN RC CONSTIPATION; Start 01/24/18 at 22:00 Carbamide Peroxide (Debrox) 4 drop PRN DAILY PRN AU CERUMEN IMPACTION; Start at 22:45 Docusate Sodium (Colace) 100 mg BID PO Last administered on 02/03/18 19:38; Start 01/25/18 at 09:00 Acetaminophen/ Hydrocodone Bitart (Lortab 5/325) 1 tab PRN Q6HRS PRN PO PAIN Last administered on 01/27/18 14:23; Start 01/24/18 at 22:00 Amylase/Lipase/ Protease (Zenpep 10,000) 1 cap QIDAFTMEAL PO Last administered on 01/25/18at 08:57; Start 01/25/18 at 08:00; Stop 01/25/18 at 12:17; Status DC Pantoprazole Sodium (Protonix) 20 mg DAILYAC PO Last administered on 02/03/18 07:32; Start 01/25/18 at 07:30 Amylase/Lipase/ Protease (Zenpep 10,000) 1 cap TIDWMEALHC PO Last administered on 02/03/18 18:12; Start 01/25/18 at 17:00 Amylase/Lipase/ Protease (Zenpep 10,000) 1 cap ONCE ONCE PO Last administered on 01/25/18at 12:43; Start 01/25/18 at 12:30; Stop 01/25/18 at 12:31; Status DC Sertraline HCl (Zoloft) 50 mg DAILY PO Last administered on 02/03/18 07:31; Start 01/26/18 at 09:00 Divalproex Sodium (Depakote Sprinkles) 125 mg BID94 PO ; Start 01/27/18 at 09:00 ; Stop 01/27/18 at 09:00; Status DC Divalproex Sodium (Depakote Sprinkles) 125 mg BID@0900,1700 PO Last administered on 02/03/18at 17:00; Start 01/27/18 at 09:00 Cefpodoxime Proxetil (Vantin) 200 mg BID PO Last administered on 02/03/18at 19: 39; Start 01/27/18 at 21:00; Stop 02/04/18 at 20:59 Lactobacillus Rhamnosus (Culturelle) 1 cap BID PO Last administered on 19:38; Start 01/27/18 at 21:00 Mirtazapine (Remeron) 7.5 mg QHS PO Last administered on 02/03/18 19:38; Start 01/29/18 at 21:00 Olanzapine (ZyPREXA) 5 mg BID PO Last administered on 02/03/18 19:38; Start at 21:00 Active Scripts Active Reported Nystop (Nystatin) 60 Gm Powder 1 Harpal TP PRN BID PRN Carbamide (Carbamide Peroxide) 15 Ml Drops 4 Drop OT PRN DAILY PRN Dulcolax (Bisacodyl) 10 Mg Supp.rect 10 Mg RC PRN DAILY PRN Promethazine Hcl 25 Mg Tablet 25 Mg PO PRN Q4HRS PRN Hydrocodone-Apap 5-325 (Hydrocodone Bit/Acetaminophen) 1 Each Tablet 1 Tab PO PRN Q6HRS PRN Morphine Sulfate 20 Mg/1 Ml Syringe 0.25-1 Ml SL PRN Q1HR PRN Atropine Sulfate 2 Ml Drops 2 Drop SL PRN Q2HR PRN Tylenol (Acetaminophen) 325 Mg Tablet 650 Mg PO PRN Q6HRS PRN Acetaminophen Supp (Acetaminophen) 650 Mg Supp.rect 650 Mg RC PRN Q4HRS PRN Edgar Rivero 12,000 Units Capsule (Lipase/Protease/Amylase) 1 Each Capsule. 1 Cap PO QID Omeprazole 20 Mg Tablet. 20 Mg PO DAILY Docusate Sodium 100 Mg Capsule 100 Mg PO BID Gabapentin 300 Mg Capsule 300 Mg PO BID Escitalopram Oxalate 20 Mg Tablet 20 Mg PO DAILY Aspirin 81 Mg Tab.chew 81 Mg PO DAILY Melatonin 3 Mg Tablet 3 Mg PO HS Olanzapine 5 Mg Tablet 5 Mg PO HS Olanzapine 5 Mg Tablet 7.5 Mg PO DAILY I have reviewed the current psychotropics carefully including drug interactions. Risk benefit ratio favors no change other than as noted in my dictated progress note. Diagnosis: Problems: (1) Mental status change (2) Anxiety disorder (3) Dementia in Alzheimer's disease with delusions (4) Dementia in Alzheimer's disease with depression (5) Dementia, vascular, with delusions (6) Dementia, vascular, with depression (7) Impulse control disorder JANETH JIMENEZ MD February 03, 2018 21:02
[2018-02-04 06:29] VITALS: BP 119/66
[2018-02-04] MEDS: DOCUSATE SODIUM 100 MG CAPSULE PO SCH ×2 (08:14→20:23)
[2018-02-04] MEDS: SERTRALINE 50 MG TABLET. PO SCH (08:14)
[2018-02-04] MEDS: LIPASE/PROTEAS/AMYLAS 10/34/55 CAPSULE.DR. PO SCH ×4 (08:14→20:51)
[2018-02-04] MEDS: DIVALPROEX 125 MG CAP.SPRINK PO SCH ×2 (08:14→18:39)
[2018-02-04] MEDS: LACTOBACILLUS RHAMNOSUS GG 1 CAPSULE. PO SCH ×2 (08:14→20:24)
[2018-02-04] MEDS: GABAPENTIN 300 MG CAPSULE. PO SCH ×2 (08:14→20:23)
[2018-02-04] MEDS: CEFPODOXIME PROXETIL 100 MG TABLET PO SCH (08:14)
[2018-02-04] MEDS: ASPIRIN 81 MG TAB.CHEW PO SCH (08:15)
[2018-02-04] MEDS: PANTOPRAZOLE 40 MG TABLET. PO SCH (08:15)
[2018-02-04] MEDS: OLANZapine 2.5 MG TABLET PO SCH (08:17)
[2018-02-04 16:07] VITALS: BP 97/57
[2018-02-04] MEDS: OLANZapine 5 MG TABLET PO SCH (18:40)
[2018-02-04] MEDS: MIRTAZAPINE 7.5 MG TABLET. PO SCH (20:23)
[2018-02-04] MEDS: MELATONIN 3 MG TABLET PO SCH (20:24)
--- NOTE | 2018-02-04 20:44 | PDOC ---
Exam Note: Cheikh Note: Please also refer to the separate dictated note~for this date of service dictated separately.~Patient seen individually. Discussed the patient with Nursing staff reviewed the chart.~Reviewed interim history and current functioning. Reviewed vital signs,~Labs/ Radiology~and current medications noted below. Continue current treatment with the changes noted in the dictated addendum note Assessment: Vital Signs: Vital Signs Date Time Temp Pulse Resp B/P (MAP) Pulse Ox O2 Delivery O2 Flow Rate FiO2 02/04/18 16:07 97.2 77 16 97/57 (70) 100 02/01/18 05:55 Room Air I&O Intake and Output 02/04/18 07:00 Intake Total 1080 ml Balance 1080 ml Intake Oral 1080 ml # Voids 1 Current Medications: Meds: Current Medications Ceftriaxone Sodium (Rocephin Im) 1 gm 1X ONCE IM Last administered on at 20:16; Start 01/24/18 at 20:00; Stop 01/24/18 at 20:01; Status DC Citalopram Hydrobromide (CeleXA) 40 mg DAILY PO Last administered on 01/25/18at 08:58; Start 01/25/18 at 09:00; Stop 01/25/18 at 20:08; Status DC Melatonin 3 mg HS PO Last administered on 02/04/18at 20:24; Start 01/24/18 at 22 :00 Olanzapine (ZyPREXA) 5 mg HS PO Last administered on 01/31/18at 20:52; Start at 22:00; Stop 02/01/18 at 19:30; Status DC Olanzapine (ZyPREXA) 7.5 mg DAILY PO Last administered on 02/01/18at 08:01; Start 01/25/18 at 09:00; Stop 02/01/18 at 19:30; Status DC Al Hydroxide/Mg Hydroxide (Mylanta Plus Xs) 15 ml PRN AFTMEALHC PRN PO DYSPEPSIA; Start 01/24/18 at 22:00 Magnesium Hydroxide (Milk Of Magnesia) 2,400 mg PRN QHS PRN PO CONSTIPATION Last administered on 02/04/18at 08:17; Start 01/24/18 at 22:00 Acetaminophen (Tylenol) 650 mg PRN Q6HRS PRN PO PAIN / TEMP; Start 01/24/18 at 22:00 Gabapentin (Neurontin) 300 mg BID PO Last administered on 02/04/18 20:23; Start 01/25/18 at 09:00 Nystatin (Nystop) 1 harpal PRN BID PRN TP RASH; Start 01/24/18 at 22:00 Promethazine HCl (Phenergan) 25 mg PRN Q4HRS PRN PO NAUSEA/VOMITING; Start at 22:00 Aspirin (Children'S Aspirin) 81 mg DAILY PO Last administered on 02/04/18 08: 15; Start 01/25/18 at 09:00 Bisacodyl (Dulcolax Supp) 10 mg PRN DAILY PRN RC CONSTIPATION; Start 01/24/18 at 22:00 Carbamide Peroxide (Debrox) 4 drop PRN DAILY PRN AU CERUMEN IMPACTION; Start at 22:45 Docusate Sodium (Colace) 100 mg BID PO Last administered on 02/04/18 20:23; Start 01/25/18 at 09:00 Acetaminophen/ Hydrocodone Bitart (Lortab 5/325) 1 tab PRN Q6HRS PRN PO PAIN Last administered on 01/27/18 14:23; Start 01/24/18 at 22:00 Amylase/Lipase/ Protease (Zenpep 10,000) 1 cap QIDAFTMEAL PO Last administered on 01/25/18at 08:57; Start 01/25/18 at 08:00; Stop 01/25/18 at 12:17; Status DC Pantoprazole Sodium (Protonix) 20 mg DAILYAC PO Last administered on 02/04/18 08:15; Start 01/25/18 at 07:30 Amylase/Lipase/ Protease (Zenpep 10,000) 1 cap TIDWMEALHC PO Last administered on 02/04/18 18:40; Start 01/25/18 at 17:00 Amylase/Lipase/ Protease (Zenpep 10,000) 1 cap ONCE ONCE PO Last administered on 01/25/18at 12:43; Start 01/25/18 at 12:30; Stop 01/25/18 at 12:31; Status DC Sertraline HCl (Zoloft) 50 mg DAILY PO Last administered on 02/04/18 08:14; Start 01/26/18 at 09:00 Divalproex Sodium (Depakote Sprinkles) 125 mg BID94 PO ; Start 01/27/18 at 09:00 ; Stop 01/27/18 at 09:00; Status DC Divalproex Sodium (Depakote Sprinkles) 125 mg BID@0900,1700 PO Last administered on 02/04/18at 18:39; Start 01/27/18 at 09:00 Cefpodoxime Proxetil (Vantin) 200 mg BID PO Last administered on 02/04/18at 08: 14; Start 01/27/18 at 21:00; Stop 02/04/18 at 17:40; Status DC Lactobacillus Rhamnosus (Culturelle) 1 cap BID PO Last administered on at 20:24; Start 01/27/18 at 21:00 Mirtazapine (Remeron) 7.5 mg QHS PO Last administered on 02/04/18at 20:23; Start 01/29/18 at 21:00 Olanzapine (ZyPREXA) 5 mg BID PO Last administered on 02/03/18at 19:38; Start at 21:00; Stop 02/03/18 at 23:01; Status DC Olanzapine (ZyPREXA) 2.5 mg DAILY08 PO Last administered on 02/04/18at 08:17; Start 02/04/18 at 08:00 Olanzapine (ZyPREXA) 5 mg DAILYWSUP PO Last administered on 02/04/18at 18:40; Start 02/04/18 at 17:00 Active Scripts Active Reported Nystop (Nystatin) 60 Gm Powder 1 Harpal TP PRN BID PRN Carbamide (Carbamide Peroxide) 15 Ml Drops 4 Drop OT PRN DAILY PRN Dulcolax (Bisacodyl) 10 Mg Supp.rect 10 Mg RC PRN DAILY PRN Promethazine Hcl 25 Mg Tablet 25 Mg PO PRN Q4HRS PRN Hydrocodone-Apap 5-325 (Hydrocodone Bit/Acetaminophen) 1 Each Tablet 1 Tab PO PRN Q6HRS PRN Morphine Sulfate 20 Mg/1 Ml Syringe 0.25-1 Ml SL PRN Q1HR PRN Atropine Sulfate 2 Ml Drops 2 Drop SL PRN Q2HR PRN Tylenol (Acetaminophen) 325 Mg Tablet 650 Mg PO PRN Q6HRS PRN Acetaminophen Supp (Acetaminophen) 650 Mg Supp.rect 650 Mg RC PRN Q4HRS PRN Creon 12,000 Units Capsule (Lipase/Protease/Amylase) 1 Each Capsule. 1 Cap PO QID Omeprazole 20 Mg Tablet.dr 20 Mg PO DAILY Docusate Sodium 100 Mg Capsule 100 Mg PO BID Gabapentin 300 Mg Capsule 300 Mg PO BID Escitalopram Oxalate 20 Mg Tablet 20 Mg PO DAILY Aspirin 81 Mg Tab.chew 81 Mg PO DAILY Melatonin 3 Mg Tablet 3 Mg PO HS Olanzapine 5 Mg Tablet 5 Mg PO HS Olanzapine 5 Mg Tablet 7.5 Mg PO DAILY I have reviewed the current psychotropics carefully including drug interactions. Risk benefit ratio favors no change other than as noted in my dictated progress note. Diagnosis: Problems: (1) Mental status change (2) Anxiety disorder (3) Dementia in Alzheimer's disease with delusions (4) Dementia in Alzheimer's disease with depression (5) Dementia, vascular, with delusions (6) Dementia, vascular, with depression (7) Impulse control disorder JANETH JIMENEZ MD February 04, 2018 20:44
--- NOTE | 2018-02-04 22:29 | PN ---
DATE: 02/02/2018 PSYCHIATRIC PROGRESS NOTE This is a late entry 02/02/2018, covers elements not covered in my initial note. SUBJECTIVE: I met with the patient in the evening. The patient slept 6-1/2 hours, Zyprexa was reduced to 10 mg a day. She is tolerating it well. REVIEW OF SYSTEMS: Ambulation impaired, in wheelchair. No CV, , pulmonary, eye, ENT system symptoms on review. Reliability poor. MENTAL STATUS EXAM: Oriented to herself. Insight, judgment, recent and remote memory, attention, concentration, fund of knowledge poor, consistent with her diagnoses mentioned in my initial note. PLAN: Continue psychotropics mentioned in my initial note. We will reduce Zyprexa further in few days. MAN Pavithra JIMENEZ MD DR: SVITLANA/brittney JOB#: [id number] / [id number]
--- NOTE | 2018-02-04 22:31 | PN ---
DATE: 02/01/2018 PSYCHIATRIC PROGRESS NOTE This is a late entry for 02/01/2018, covers the elements not covered in my initial note of 02/01/2018. SUBJECTIVE: I met with the patient in the evening. The patient slept 6-1/2 hours. She remains confused, but otherwise cooperative, compliant with medications that are hidden. REVIEW OF SYSTEMS: Ambulation impaired, in wheelchair. No CV, , pulmonary, eye, ENT system symptoms on review. Reliability poor. MENTAL STATUS EXAM: Oriented to herself. Insight, judgment, recent and remote memory, attention, concentration, fund of knowledge poor, consistent with her diagnosis mentioned in my initial note. PLAN: Reduce the Zyprexa from 7.5 mg a.m., 5 mg at bedtime to 5 mg a.m. and at bedtime. Continue rest unchanged. MAN MAlin JIMENEZ MD DR: SVITLANA/brittney JOB#: [id number] / [id number]
[2018-02-05 06:13] VITALS: BP 125/56
[2018-02-05] MEDS: LIPASE/PROTEAS/AMYLAS 10/34/55 CAPSULE.DR. PO SCH ×4 (07:39→19:35)
[2018-02-05] MEDS: LACTOBACILLUS RHAMNOSUS GG 1 CAPSULE. PO SCH ×2 (07:40→19:34)
[2018-02-05] MEDS: OLANZapine 2.5 MG TABLET PO SCH (07:40)
[2018-02-05] MEDS: ASPIRIN 81 MG TAB.CHEW PO SCH (07:40)
[2018-02-05] MEDS: PANTOPRAZOLE 40 MG TABLET. PO SCH (07:40)
[2018-02-05] MEDS: DIVALPROEX 125 MG CAP.SPRINK PO SCH ×2 (07:40→16:58)
[2018-02-05] MEDS: SERTRALINE 50 MG TABLET. PO SCH (07:40)
[2018-02-05] MEDS: GABAPENTIN 300 MG CAPSULE. PO SCH ×2 (07:41→19:34)
[2018-02-05] MEDS: DOCUSATE SODIUM 100 MG CAPSULE PO SCH ×2 (07:42→19:34)
[2018-02-05 16:18] VITALS: BP 91/61
[2018-02-05] MEDS: OLANZapine 5 MG TABLET PO SCH (16:58)
[2018-02-05] MEDS: MIRTAZAPINE 7.5 MG TABLET. PO SCH (19:34)
[2018-02-05] MEDS: MELATONIN 3 MG TABLET PO SCH (19:34)
--- NOTE | 2018-02-05 20:48 | PDOC ---
Exam Note: Cheikh Note: Please also refer to the separate dictated note~for this date of service dictated separately.~Patient seen individually. Discussed the patient with Nursing staff reviewed the chart.~Reviewed interim history and current functioning. Reviewed vital signs,~Labs/ Radiology~and current medications noted below. Continue current treatment with the changes noted in the dictated addendum note Assessment: Vital Signs: Vital Signs Date Time Temp Pulse Resp B/P (MAP) Pulse Ox O2 Delivery O2 Flow Rate FiO2 02/05/18 16:18 97.3 65 18 91/61 (71) 95 02/01/18 05:55 Room Air I&O Intake and Output 02/05/18 07:00 Intake Total 800 ml Balance 800 ml Intake Oral 800 ml Current Medications: Meds: Current Medications Ceftriaxone Sodium (Rocephin Im) 1 gm 1X ONCE IM Last administered on at 20:16; Start 01/24/18 at 20:00; Stop 01/24/18 at 20:01; Status DC Citalopram Hydrobromide (CeleXA) 40 mg DAILY PO Last administered on 01/25/18at 08:58; Start 01/25/18 at 09:00; Stop 01/25/18 at 20:08; Status DC Melatonin 3 mg HS PO Last administered on 02/05/18at 19:34; Start 01/24/18 at 22 :00 Olanzapine (ZyPREXA) 5 mg HS PO Last administered on 01/31/18at 20:52; Start at 22:00; Stop 02/01/18 at 19:30; Status DC Olanzapine (ZyPREXA) 7.5 mg DAILY PO Last administered on 02/01/18at 08:01; Start 01/25/18 at 09:00; Stop 02/01/18 at 19:30; Status DC Al Hydroxide/Mg Hydroxide (Mylanta Plus Xs) 15 ml PRN AFTMEALHC PRN PO DYSPEPSIA; Start 01/24/18 at 22:00 Magnesium Hydroxide (Milk Of Magnesia) 2,400 mg PRN QHS PRN PO CONSTIPATION Last administered on 02/04/18at 08:17; Start 01/24/18 at 22:00 Acetaminophen (Tylenol) 650 mg PRN Q6HRS PRN PO PAIN / TEMP; Start 01/24/18 at 22:00 Gabapentin (Neurontin) 300 mg BID PO Last administered on 02/05/18 19:34; Start 01/25/18 at 09:00 Nystatin (Nystop) 1 harpal PRN BID PRN TP RASH; Start 01/24/18 at 22:00 Promethazine HCl (Phenergan) 25 mg PRN Q4HRS PRN PO NAUSEA/VOMITING; Start at 22:00 Aspirin (Children'S Aspirin) 81 mg DAILY PO Last administered on 02/05/18 07: 40; Start 01/25/18 at 09:00 Bisacodyl (Dulcolax Supp) 10 mg PRN DAILY PRN RC CONSTIPATION; Start 01/24/18 at 22:00 Carbamide Peroxide (Debrox) 4 drop PRN DAILY PRN AU CERUMEN IMPACTION; Start at 22:45 Docusate Sodium (Colace) 100 mg BID PO Last administered on 02/05/18 19:34; Start 01/25/18 at 09:00 Acetaminophen/ Hydrocodone Bitart (Lortab 5/325) 1 tab PRN Q6HRS PRN PO PAIN Last administered on 01/27/18 14:23; Start 01/24/18 at 22:00 Amylase/Lipase/ Protease (Zenpep 10,000) 1 cap QIDAFTMEAL PO Last administered on 01/25/18 08:57; Start 01/25/18 at 08:00; Stop 01/25/18 at 12:17; Status DC Pantoprazole Sodium (Protonix) 20 mg DAILYAC PO Last administered on 02/05/18 07:40; Start 01/25/18 at 07:30 Amylase/Lipase/ Protease (Zenpep 10,000) 1 cap TIDWMEALHC PO Last administered on 02/05/18 19:35; Start 01/25/18 at 17:00 Amylase/Lipase/ Protease (Zenpep 10,000) 1 cap ONCE ONCE PO Last administered on 01/25/18 12:43; Start 01/25/18 at 12:30; Stop 01/25/18 at 12:31; Status DC Sertraline HCl (Zoloft) 50 mg DAILY PO Last administered on 02/05/18 07:40; Start 01/26/18 at 09:00 Divalproex Sodium (Depakote Sprinkles) 125 mg BID94 PO ; Start 01/27/18 at 09:00 ; Stop 01/27/18 at 09:00; Status DC Divalproex Sodium (Depakote Sprinkles) 125 mg BID@0900,1700 PO Last administered on 02/05/18at 16:58; Start 01/27/18 at 09:00 Cefpodoxime Proxetil (Vantin) 200 mg BID PO Last administered on 02/04/18at 08: 14; Start 01/27/18 at 21:00; Stop 02/04/18 at 17:40; Status DC Lactobacillus Rhamnosus (Culturelle) 1 cap BID PO Last administered on at 19:34; Start 01/27/18 at 21:00 Mirtazapine (Remeron) 7.5 mg QHS PO Last administered on 02/05/18at 19:34; Start 01/29/18 at 21:00 Olanzapine (ZyPREXA) 5 mg BID PO Last administered on 02/03/18at 19:38; Start at 21:00; Stop 02/03/18 at 23:01; Status DC Olanzapine (ZyPREXA) 2.5 mg DAILY08 PO Last administered on 02/05/18at 07:40; Start 02/04/18 at 08:00 Olanzapine (ZyPREXA) 5 mg DAILYWSUP PO Last administered on 02/05/18at 16:58; Start 02/04/18 at 17:00 Active Scripts Active Reported Nystop (Nystatin) 60 Gm Powder 1 Harpal TP PRN BID PRN Carbamide (Carbamide Peroxide) 15 Ml Drops 4 Drop OT PRN DAILY PRN Dulcolax (Bisacodyl) 10 Mg Supp.rect 10 Mg RC PRN DAILY PRN Promethazine Hcl 25 Mg Tablet 25 Mg PO PRN Q4HRS PRN Hydrocodone-Apap 5-325 (Hydrocodone Bit/Acetaminophen) 1 Each Tablet 1 Tab PO PRN Q6HRS PRN Morphine Sulfate 20 Mg/1 Ml Syringe 0.25-1 Ml SL PRN Q1HR PRN Atropine Sulfate 2 Ml Drops 2 Drop SL PRN Q2HR PRN Tylenol (Acetaminophen) 325 Mg Tablet 650 Mg PO PRN Q6HRS PRN Acetaminophen Supp (Acetaminophen) 650 Mg Supp.rect 650 Mg RC PRN Q4HRS PRN Creon 12,000 Units Capsule (Lipase/Protease/Amylase) 1 Each Capsule. 1 Cap PO QID Omeprazole 20 Mg Tablet.dr 20 Mg PO DAILY Docusate Sodium 100 Mg Capsule 100 Mg PO BID Gabapentin 300 Mg Capsule 300 Mg PO BID Escitalopram Oxalate 20 Mg Tablet 20 Mg PO DAILY Aspirin 81 Mg Tab.chew 81 Mg PO DAILY Melatonin 3 Mg Tablet 3 Mg PO HS Olanzapine 5 Mg Tablet 5 Mg PO HS Olanzapine 5 Mg Tablet 7.5 Mg PO DAILY I have reviewed the current psychotropics carefully including drug interactions. Risk benefit ratio favors no change other than as noted in my dictated progress note. Diagnosis: Problems: (1) Mental status change (2) Anxiety disorder (3) Dementia in Alzheimer's disease with delusions (4) Dementia in Alzheimer's disease with depression (5) Dementia, vascular, with delusions (6) Dementia, vascular, with depression (7) Impulse control disorder JANETH JIMENEZ MD February 05, 2018 20:48
[2018-02-06 06:05] VITALS: BP 160/78
[2018-02-06] MEDS: SERTRALINE 50 MG TABLET. PO SCH (07:58)
[2018-02-06] MEDS: GABAPENTIN 300 MG CAPSULE. PO SCH ×2 (07:58→19:33)
[2018-02-06] MEDS: LACTOBACILLUS RHAMNOSUS GG 1 CAPSULE. PO SCH ×2 (07:58→19:33)
[2018-02-06] MEDS: DOCUSATE SODIUM 100 MG CAPSULE PO SCH ×2 (07:58→19:33)
[2018-02-06] MEDS: ASPIRIN 81 MG TAB.CHEW PO SCH (07:58)
[2018-02-06] MEDS: LIPASE/PROTEAS/AMYLAS 10/34/55 CAPSULE.DR. PO SCH ×4 (07:58→19:35)
[2018-02-06] MEDS: PANTOPRAZOLE 40 MG TABLET. PO SCH (07:58)
[2018-02-06] MEDS: DIVALPROEX 125 MG CAP.SPRINK PO SCH ×2 (07:58→17:33)
[2018-02-06] MEDS: OLANZapine 2.5 MG TABLET PO SCH (07:58)
--- NOTE | 2018-02-06 12:25 | PN ---
DATE: 02/03/2018 PSYCHIATRIC PROGRESS NOTE This is a late entry 02/03/2018, covers elements not covered in my initial note 02/03/2018. SUBJECTIVE: I met with the patient in the evening. The patient slept 6 hours previous evening, somewhat restless, trying to get out of the chair, but not aggressive. REVIEW OF SYSTEMS: No CV, , pulmonary, eye, ENT system symptoms on review. Reliability poor. Gait unsteady, in wheelchair. MENTAL STATUS EXAM: Oriented to herself. Insight, judgment, recent and remote memory, attention, concentration, fund of knowledge poor, consistent with her diagnoses mentioned in my initial note. PLAN: Reduce Zyprexa from 5 mg b.i.d. to 2.5 mg in the morning and 5 mg in the evening. Continue rest unchanged. This is the second dose reduction in Zyprexa. We have attempted since the UTI has been treated. JANETH JIMENEZ MD DR: SVITLANA/brittney JOB#: [id number] / [id number]
--- NOTE | 2018-02-06 12:35 | PN ---
DATE: 02/04/2018 This late entry 02/04/2018 covers elements, not covered in my initial note of 02/04/2018. SUBJECTIVE: I met with the patient in the evening. Overall, the patient has been fairly cooperative, confused, tolerating the reduction of Zyprexa. REVIEW OF SYSTEMS: Ambulation impaired, in wheelchair. No CV, , pulmonary, eye, ENT system symptoms on review. Reliability poor. MENTAL STATUS EXAM: Oriented to herself. Insight, judgment, recent and remote memory, attention, concentration, fund of knowledge poor, consistent with her diagnosis mentioned in my initial note. PLAN: Continue current psychotropics from initial note. MAN Pavithra JIMENEZ MD DR: SVITLANA/brittney JOB#: [id number] / [id number]
[2018-02-06 16:15] VITALS: BP 105/59
[2018-02-06] MEDS: OLANZapine 5 MG TABLET PO SCH (17:33)
[2018-02-06] MEDS: MIRTAZAPINE 7.5 MG TABLET. PO SCH (19:33)
[2018-02-06] MEDS: MELATONIN 3 MG TABLET PO SCH (19:33)
--- NOTE | 2018-02-06 21:03 | PDOC ---
Exam Note: Cheikh Note: Please also refer to the separate dictated note~for this date of service dictated separately.~Patient seen individually. Discussed the patient with Nursing staff reviewed the chart.~Reviewed interim history and current functioning. Reviewed vital signs,~Labs/ Radiology~and current medications noted below. Continue current treatment with the changes noted in the dictated addendum note Assessment: Vital Signs: Vital Signs Date Time Temp Pulse Resp B/P (MAP) Pulse Ox O2 Delivery O2 Flow Rate FiO2 02/06/18 16:15 97.8 70 18 105/59 (74) 98 Room Air I&O Intake and Output 02/06/18 07:00 Intake Total 600 ml Balance 600 ml Intake Oral 600 ml # Bowel Movements 1 Current Medications: Meds: Current Medications Ceftriaxone Sodium (Rocephin Im) 1 gm 1X ONCE IM Last administered on at 20:16; Start 01/24/18 at 20:00; Stop 01/24/18 at 20:01; Status DC Citalopram Hydrobromide (CeleXA) 40 mg DAILY PO Last administered on 01/25/18at 08:58; Start 01/25/18 at 09:00; Stop 01/25/18 at 20:08; Status DC Melatonin 3 mg HS PO Last administered on 02/06/18at 19:33; Start 01/24/18 at 22 :00 Olanzapine (ZyPREXA) 5 mg HS PO Last administered on 01/31/18at 20:52; Start at 22:00; Stop 02/01/18 at 19:30; Status DC Olanzapine (ZyPREXA) 7.5 mg DAILY PO Last administered on 02/01/18at 08:01; Start 01/25/18 at 09:00; Stop 02/01/18 at 19:30; Status DC Al Hydroxide/Mg Hydroxide (Mylanta Plus Xs) 15 ml PRN AFTMEALHC PRN PO DYSPEPSIA; Start 01/24/18 at 22:00 Magnesium Hydroxide (Milk Of Magnesia) 2,400 mg PRN QHS PRN PO CONSTIPATION Last administered on 02/04/18at 08:17; Start 01/24/18 at 22:00 Acetaminophen (Tylenol) 650 mg PRN Q6HRS PRN PO PAIN / TEMP; Start 01/24/18 at 22:00 Gabapentin (Neurontin) 300 mg BID PO Last administered on 02/06/18 19:33; Start 01/25/18 at 09:00 Nystatin (Nystop) 1 harpal PRN BID PRN TP RASH; Start 01/24/18 at 22:00 Promethazine HCl (Phenergan) 25 mg PRN Q4HRS PRN PO NAUSEA/VOMITING; Start at 22:00 Aspirin (Children'S Aspirin) 81 mg DAILY PO Last administered on 02/06/18 07: 58; Start 01/25/18 at 09:00 Bisacodyl (Dulcolax Supp) 10 mg PRN DAILY PRN RC CONSTIPATION; Start 01/24/18 at 22:00 Carbamide Peroxide (Debrox) 4 drop PRN DAILY PRN AU CERUMEN IMPACTION; Start at 22:45 Docusate Sodium (Colace) 100 mg BID PO Last administered on 02/06/18 19:33; Start 01/25/18 at 09:00 Acetaminophen/ Hydrocodone Bitart (Lortab 5/325) 1 tab PRN Q6HRS PRN PO PAIN Last administered on 01/27/18 14:23; Start 01/24/18 at 22:00 Amylase/Lipase/ Protease (Zenpep 10,000) 1 cap QIDAFTMEAL PO Last administered on 01/25/18 08:57; Start 01/25/18 at 08:00; Stop 01/25/18 at 12:17; Status DC Pantoprazole Sodium (Protonix) 20 mg DAILYAC PO Last administered on 02/06/18 07:58; Start 01/25/18 at 07:30 Amylase/Lipase/ Protease (Zenpep 10,000) 1 cap TIDWMEALHC PO Last administered on 02/06/18 19:35; Start 01/25/18 at 17:00 Amylase/Lipase/ Protease (Zenpep 10,000) 1 cap ONCE ONCE PO Last administered on 01/25/18at 12:43; Start 01/25/18 at 12:30; Stop 01/25/18 at 12:31; Status DC Sertraline HCl (Zoloft) 50 mg DAILY PO Last administered on 02/06/18 07:58; Start 01/26/18 at 09:00 Divalproex Sodium (Depakote Sprinkles) 125 mg BID94 PO ; Start 01/27/18 at 09:00 ; Stop 01/27/18 at 09:00; Status DC Divalproex Sodium (Depakote Sprinkles) 125 mg BID@0900,1700 PO Last administered on 02/06/18 17:33; Start 01/27/18 at 09:00 Cefpodoxime Proxetil (Vantin) 200 mg BID PO Last administered on 02/04/18at 08: 14; Start 01/27/18 at 21:00; Stop 02/04/18 at 17:40; Status DC Lactobacillus Rhamnosus (Culturelle) 1 cap BID PO Last administered on 19:33; Start 01/27/18 at 21:00 Mirtazapine (Remeron) 7.5 mg QHS PO Last administered on 02/06/18at 19:33; Start 01/29/18 at 21:00 Olanzapine (ZyPREXA) 5 mg BID PO Last administered on 02/03/18at 19:38; Start at 21:00; Stop 02/03/18 at 23:01; Status DC Olanzapine (ZyPREXA) 2.5 mg DAILY08 PO Last administered on 02/06/18at 07:58; Start 02/04/18 at 08:00 Olanzapine (ZyPREXA) 5 mg DAILYWSUP PO Last administered on 02/06/18at 17:33; Start 02/04/18 at 17:00 Active Scripts Active Reported Nystop (Nystatin) 60 Gm Powder 1 Harpal TP PRN BID PRN Carbamide (Carbamide Peroxide) 15 Ml Drops 4 Drop OT PRN DAILY PRN Dulcolax (Bisacodyl) 10 Mg Supp.rect 10 Mg RC PRN DAILY PRN Promethazine Hcl 25 Mg Tablet 25 Mg PO PRN Q4HRS PRN Hydrocodone-Apap 5-325 (Hydrocodone Bit/Acetaminophen) 1 Each Tablet 1 Tab PO PRN Q6HRS PRN Morphine Sulfate 20 Mg/1 Ml Syringe 0.25-1 Ml SL PRN Q1HR PRN Atropine Sulfate 2 Ml Drops 2 Drop SL PRN Q2HR PRN Tylenol (Acetaminophen) 325 Mg Tablet 650 Mg PO PRN Q6HRS PRN Acetaminophen Supp (Acetaminophen) 650 Mg Supp.rect 650 Mg RC PRN Q4HRS PRN Creon Dr 12,000 Units Capsule (Lipase/Protease/Amylase) 1 Each Capsule.dr 1 Cap PO QID Omeprazole 20 Mg Tablet.dr 20 Mg PO DAILY Docusate Sodium 100 Mg Capsule 100 Mg PO BID Gabapentin 300 Mg Capsule 300 Mg PO BID Escitalopram Oxalate 20 Mg Tablet 20 Mg PO DAILY Aspirin 81 Mg Tab.chew 81 Mg PO DAILY Melatonin 3 Mg Tablet 3 Mg PO HS Olanzapine 5 Mg Tablet 5 Mg PO HS Olanzapine 5 Mg Tablet 7.5 Mg PO DAILY I have reviewed the current psychotropics carefully including drug interactions. Risk benefit ratio favors no change other than as noted in my dictated progress note. Diagnosis: Problems: (1) Mental status change (2) Anxiety disorder (3) Dementia in Alzheimer's disease with delusions (4) Dementia in Alzheimer's disease with depression (5) Dementia, vascular, with delusions (6) Dementia, vascular, with depression (7) Impulse control disorder JANETH JIMENEZ MD February 06, 2018 21:03
[2018-02-06] MEDS ORDERED: PANT20TA58 PO (23:27)
[2018-02-06] MEDS ORDERED: LACT1CAP21 PO (23:32)
[2018-02-06] MEDS ORDERED: DIVA125C PO (23:34)
[2018-02-06] MEDS ORDERED: MAG30ORA PO (23:36)
[2018-02-06] MEDS ORDERED: MAGN2400 PO (23:38)
[2018-02-06] MEDS ORDERED: MIRT15TA3 PO (23:40)
[2018-02-06] MEDS ORDERED: SERT50TA PO (23:46)
--- NOTE | 2018-02-07 03:10 | PN ---
DATE: 02/05/2018 PSYCHIATRIC PROGRESS NOTE This is a late entry of 02/05/2018, covers elements not covered in my initial note of 02/05/2018. I met with the patient in the evening. The patient remains confused, takes her medications crushed in ice cream. Slept 7 hours. REVIEW OF SYSTEMS: Ambulation impaired, in wheelchair. No CV, , pulmonary, eye, ENT system symptoms on review. Reliability poor. MENTAL STATUS EXAM: Oriented to herself. Insight, judgment, recent and remote memory, attention, concentration, fund of knowledge poor, consistent with her diagnosis mentioned in my initial note. PLAN: Continue current psychotropics and Zyprexa has been reduced. We may reduce it one more step if possible before her transition to long-term on 02/07/2018. MAN Pavithra JIMENEZ MD DR: SVITLANA/brittney JOB#: [id number] / [id number]
[2018-02-07 06:20] VITALS: BP 118/45
[2018-02-07] MEDS: LACTOBACILLUS RHAMNOSUS GG 1 CAPSULE. PO SCH (07:34)
[2018-02-07] MEDS: DIVALPROEX 125 MG CAP.SPRINK PO SCH (07:34)
[2018-02-07] MEDS: PANTOPRAZOLE 40 MG TABLET. PO SCH (07:36)
[2018-02-07] MEDS: DOCUSATE SODIUM 100 MG CAPSULE PO SCH (07:37)
[2018-02-07] MEDS: GABAPENTIN 300 MG CAPSULE. PO SCH (07:37)
[2018-02-07] MEDS: LIPASE/PROTEAS/AMYLAS 10/34/55 CAPSULE.DR. PO SCH (07:37)
[2018-02-07] MEDS: OLANZapine 2.5 MG TABLET PO SCH (07:37)
[2018-02-07] MEDS: SERTRALINE 50 MG TABLET. PO SCH (07:37)
[2018-02-07] MEDS: ASPIRIN 81 MG TAB.CHEW PO SCH (07:37)
--- NOTE | 2018-02-07 20:25 | PDOC ---
Exam Note: Cheikh Note: Please also refer to the separate dictated note~for this date of service dictated separately.~Patient seen individually. Discussed the patient with Nursing staff reviewed the chart.~Reviewed interim history and current functioning. Reviewed vital signs,~Labs/ Radiology~and current medications noted below. Continue current treatment with the changes noted in the dictated addendum note Assessment: Vital Signs: Vital Signs Date Time Temp Pulse Resp B/P (MAP) Pulse Ox O2 Delivery O2 Flow Rate FiO2 02/07/18 06:20 96.7 68 16 118/45 (69) 98 02/06/18 16:15 Room Air I&O Intake and Output 02/07/18 07:00 Intake Total 840 ml Balance 840 ml Intake Oral 840 ml Current Medications: Meds: Current Medications Ceftriaxone Sodium (Rocephin Im) 1 gm 1X ONCE IM Last administered on 20:16; Start 01/24/18 at 20:00; Stop 01/24/18 at 20:01; Status DC Citalopram Hydrobromide (CeleXA) 40 mg DAILY PO Last administered on 01/25/18at 08:58; Start 01/25/18 at 09:00; Stop 01/25/18 at 20:08; Status DC Melatonin 3 mg HS PO Last administered on 02/06/18at 19:33; Start 01/24/18 at 22 :00; Stop 02/07/18 at 10:59; Status DC Olanzapine (ZyPREXA) 5 mg HS PO Last administered on 01/31/18at 20:52; Start at 22:00; Stop 02/01/18 at 19:30; Status DC Olanzapine (ZyPREXA) 7.5 mg DAILY PO Last administered on 02/01/18at 08:01; Start 01/25/18 at 09:00; Stop 02/01/18 at 19:30; Status DC Al Hydroxide/Mg Hydroxide (Mylanta Plus Xs) 15 ml PRN AFTMEALHC PRN PO DYSPEPSIA; Start 01/24/18 at 22:00; Stop 02/07/18 at 10:59; Status DC Magnesium Hydroxide (Milk Of Magnesia) 2,400 mg PRN QHS PRN PO CONSTIPATION Last administered on 02/04/18at 08:17; Start 01/24/18 at 22:00; Stop 02/07/18 at 10:59; Status DC Acetaminophen (Tylenol) 650 mg PRN Q6HRS PRN PO PAIN / TEMP; Start 01/24/18 at 22:00; Stop 02/07/18 at 10:59; Status DC Gabapentin (Neurontin) 300 mg BID PO Last administered on 02/07/18at 07:37; Start 01/25/18 at 09:00; Stop 02/07/18 at 10:59; Status DC Nystatin (Nystop) 1 harpal PRN BID PRN TP RASH; Start 01/24/18 at 22:00; Stop at 10:59; Status DC Promethazine HCl (Phenergan) 25 mg PRN Q4HRS PRN PO NAUSEA/VOMITING; Start at 22:00; Stop 02/07/18 at 10:59; Status DC Aspirin (Children'S Aspirin) 81 mg DAILY PO Last administered on 02/07/18at 07: 37; Start 01/25/18 at 09:00; Stop 02/07/18 at 10:59; Status DC Bisacodyl (Dulcolax Supp) 10 mg PRN DAILY PRN RC CONSTIPATION; Start 01/24/18 at 22:00; Stop 02/07/18 at 10:59; Status DC Carbamide Peroxide (Debrox) 4 drop PRN DAILY PRN AU CERUMEN IMPACTION; Start at 22:45; Stop 02/07/18 at 10:59; Status DC Docusate Sodium (Colace) 100 mg BID PO Last administered on 02/07/18at 07:37; Start 01/25/18 at 09:00; Stop 02/07/18 at 10:59; Status DC Acetaminophen/ Hydrocodone Bitart (Lortab 5/325) 1 tab PRN Q6HRS PRN PO PAIN Last administered on 01/27/18at 14:23; Start 01/24/18 at 22:00; Stop 02/07/18 at 10:59; Status DC Amylase/Lipase/ Protease (Zenpep 10,000) 1 cap QIDAFTMEAL PO Last administered on 01/25/18at 08:57; Start 01/25/18 at 08:00; Stop 01/25/18 at 12:17; Status DC Pantoprazole Sodium (Protonix) 20 mg DAILYAC PO Last administered on 02/07/18at 07:36; Start 01/25/18 at 07:30; Stop 02/07/18 at 10:59; Status DC Amylase/Lipase/ Protease (Zenpep 10,000) 1 cap TIDWMEALHC PO Last administered on 02/07/18at 07:37; Start 01/25/18 at 17:00; Stop 02/07/18 at 10:59; Status DC Amylase/Lipase/ Protease (Zenpep 10,000) 1 cap ONCE ONCE PO Last administered on 01/25/18at 12:43; Start 01/25/18 at 12:30; Stop 01/25/18 at 12:31; Status DC Sertraline HCl (Zoloft) 50 mg DAILY PO Last administered on 02/07/18at 07:37; Start 01/26/18 at 09:00; Stop 02/07/18 at 10:59; Status DC Divalproex Sodium (Depakote Sprinkles) 125 mg BID94 PO ; Start 01/27/18 at 09:00 ; Stop 01/27/18 at 09:00; Status DC Divalproex Sodium (Depakote Sprinkles) 125 mg BID@0900,1700 PO Last administered on 02/07/18at 07:34; Start 01/27/18 at 09:00; Stop 02/07/18 at 10:59 ; Status DC Cefpodoxime Proxetil (Vantin) 200 mg BID PO Last administered on 02/04/18at 08: 14; Start 01/27/18 at 21:00; Stop 02/04/18 at 17:40; Status DC Lactobacillus Rhamnosus (Culturelle) 1 cap BID PO Last administered on at 07:34; Start 01/27/18 at 21:00; Stop 02/07/18 at 10:59; Status DC Mirtazapine (Remeron) 7.5 mg QHS PO Last administered on 02/06/18at 19:33; Start 01/29/18 at 21:00; Stop 02/07/18 at 10:59; Status DC Olanzapine (ZyPREXA) 5 mg BID PO Last administered on 02/03/18at 19:38; Start at 21:00; Stop 02/03/18 at 23:01; Status DC Olanzapine (ZyPREXA) 2.5 mg DAILY08 PO Last administered on 02/07/18at 07:37; Start 02/04/18 at 08:00; Stop 02/07/18 at 10:59; Status DC Olanzapine (ZyPREXA) 5 mg DAILYWSUP PO Last administered on 02/06/18at 17:33; Start 02/04/18 at 17:00; Stop 02/07/18 at 10:59; Status DC Active Scripts Active Reported Zoloft (Sertraline Hcl) 50 Mg Tablet 50 Mg PO DAILY Mirtazapine 15 Mg Tablet 7.5 Mg PO QHS Milk Of Magnesia (Magnesium Hydroxide) 2,400 Mg/10 Ml Oral.susp 2,400 Mg PO PRN QHS PRN Mag-Al Plus Suspension (Mag Hydrox/Al Hydrox/Simeth) 30 Ml Oral.susp 15 Ml PO PRN AFTMEALHC PRN Depakote Sprinkle (Divalproex Sodium) 125 Mg Cap.sprink 125 Mg PO BID94 Culturelle (Lactobacillus Rhamnosus Gg) 1 Each Capsule 1 Each PO BID Protonix (Pantoprazole Sodium) 20 Mg Tablet.dr 20 Mg PO DAILYAC Nystop (Nystatin) 60 Gm Powder 1 Harpal TP PRN BID PRN Carbamide (Carbamide Peroxide) 15 Ml Drops 4 Drop AU PRN DAILY PRN Dulcolax (Bisacodyl) 10 Mg Supp.rect 10 Mg RC PRN DAILY PRN Promethazine Hcl 25 Mg Tablet 25 Mg PO PRN Q4HRS PRN Hydrocodone-Apap 5-325 (Hydrocodone Bit/Acetaminophen) 1 Each Tablet 1 Tab PO PRN Q6HRS PRN Tylenol (Acetaminophen) 325 Mg Tablet 650 Mg PO PRN Q6HRS PRN [place]o 12,000 Units Capsule (Lipase/Protease/Amylase) 1 Each Capsule. 1 Cap PO QID Docusate Sodium 100 Mg Capsule 100 Mg PO BID Gabapentin 300 Mg Capsule 300 Mg PO BID Aspirin 81 Mg Tab.chew 81 Mg PO DAILY Melatonin 3 Mg Tablet 3 Mg PO HS Olanzapine 5 Mg Tablet 5 Mg PO DAILYWSUP Olanzapine 5 Mg Tablet 2.5 Mg PO DAILY08 I have reviewed the current psychotropics carefully including drug interactions. Risk benefit ratio favors no change other than as noted in my dictated progress note. Diagnosis: Problems: (1) Anxiety disorder (2) Dementia in Alzheimer's disease with delusions (3) Dementia in Alzheimer's disease with depression (4) Dementia, vascular, with delusions (5) Dementia, vascular, with depression (6) Impulse control disorder JANETH JIMENEZ MD February 07, 2018 20:25
--- NOTE | 2018-02-08 23:33 | DS ---
DATE OF DISCHARGE: 02/07/2018 DISCHARGE SUMMARY/PSYCHIATRIC PROGRESS NOTE This is a late entry, date of service 02/07/2018 covers elements not covered in my initial note. REASON FOR ADMISSION: Please refer to the admission history for details. Briefly, the patient is an 82-year-old female referred to us from [facility] by her primary care physician on account of increased delusions, agitation, inappropriate sexual touching and being intrusive. This is within the context of her significant dementia. She had failed outpatient psychiatric interventions. SIGNIFICANT FINDINGS AND CLINICAL COURSE: Following admission, the patient was seen daily individually by myself from a psychiatric standpoint, medical followup per Dr. Tolentino/Dr Odonnell/Dr Baxter. She was quite confused, agitated, labile in her mood. Adjustments were made in her psychotropics. She seemed to respond to a combination of Depakote 125 mg 9 a.m., 5 p.m.; Remeron 7.5 mg at bedtime; Zyprexa was being gradually tapered from the rather high dosage for her age that she was on prior to admission and at time of discharge, she was on 2.5 mg in the morning, 5 mg at 1700 along with melatonin 3 mg at bedtime, Zoloft 50 mg a day. Gradually, mood appeared to improve. She was less labile, still confused. CONDITION AT DISCHARGE: Improved. REVIEW OF SYSTEMS: Prior to discharge, 02/07/2018, impaired, ambulation in wheelchair. No CV, , pulmonary, eye, ENT system symptoms on review. Reliability poor. MENTAL STATUS EXAM: Oriented to herself. Insight, judgment, recent and remote memory, attention, concentration, fund of knowledge poor, consistent with her diagnosis. FINAL DIAGNOSES: Major neurocognitive disorder, Alzheimer, vascular with depression, delusion, behavioral disturbance; anxiety disorder, unspecified; impulse control disorder, unspecified. Rest unchanged from admission. DISCHARGE MEDICATIONS: Please refer to the MRAD. DISCHARGE INSTRUCTIONS: Outpatient psychiatric and medical followup at the snf. MAN Pavithra JIMENEZ MD DR: SVITLANA/brittney JOB#: [id number] / [id number]
--- NOTE | 2018-02-09 02:01 | PN ---
DATE: 02/06/2018 This late entry of 02/06/2018 covers elements not covered in my initial note 02/06/2018. SUBJECTIVE: I met with the patient in the evening. The patient slept 5-1/2 hours, confused, takes her medications hidden in pudding, compliant with cares. REVIEW OF SYSTEMS: Positive for impaired ambulation, in wheelchair. No CV, , pulmonary, eye, ENT system symptoms on review. Reliability poor. MENTAL STATUS EXAM: Oriented to herself. Insight, judgment, recent and remote memory, attention, concentration, fund of knowledge poor, consistent with her diagnosis mentioned in my initial note. PLAN: Continue current psychotropics. Transition to retirement 02/07/2018. MAN Pavithra JIMENEZ MD DR: SVITLANA/brittney JOB#: [id number] / [id number]
== END 2018-02-07 10:25 | DRG 57 ==
LOC: EEVIPCON 18:05 → ER 18:05 → GEROPSY 19:03
PROVIDERS: ADMIT Psychiatry & Neurology Psychiatry; ATTEND Psychiatry & Neurology Psychiatry
DX: G30.9 Alzheimer's disease, unspecified (principal); E11.40 Type 2 diabetes mellitus with diabetic neuropathy, unspecified; F01.51 Vascular dementia, unspecified severity, with behavioral disturbance; F02.81 Dementia in other diseases classified elsewhere, unspecified severity, with behavioral disturbance; N39.0 Urinary tract infection, site not specified; I49.5 Sick sinus syndrome; F32.9 Major depressive disorder, single episode, unspecified; M19.90 Unspecified osteoarthritis, unspecified site; E55.9 Vitamin D deficiency, unspecified; E78.5 Hyperlipidemia, unspecified; F63.9 Impulse disorder, unspecified; F41.1 Generalized anxiety disorder; G25.81 Restless legs syndrome; K21.9 Gastro-esophageal reflux disease without esophagitis; M81.0 Age-related osteoporosis without current pathological fracture; Z66 Do not resuscitate; Z79.899 Other long term (current) drug therapy; Z86.73 Personal history of transient ischemic attack (TIA), and cerebral infarction without residual deficits; Z87.440 Personal history of urinary (tract) infections; Z91.041 Radiographic dye allergy status
CPT/HCPCS: 36415; 70450; 71045; 80048; 80053; 80061; 80164; 80307; 81001; 82306; 82550; 82607; 83036; 83540; 83550; 83735; 83880; 84436; 84443; 84480; 84484; 85025; 85610; 85651; 85730; 86593; 87086; 87186; 93005; 96372; J0696; 99285-25; G0479